=== PATIENT | female | born 1935 | race Caucasian/White ===

== ENCOUNTER 2017-05-03 16:17 | Emergency (ER) | payer MEDICARE ==
[2017-05-03 17:51] VITALS: BP 135/61
[2017-05-03] MEDS ORDERED: ZOFRAN IV ONE (18:25)
[2017-05-03] MEDS ORDERED: NACL 0.9% 1000 ML 1,000 ML IV ONE (18:25)
[2017-05-03] MEDS ORDERED: MORPHINE IV ONE (18:25)
[2017-05-03] MEDS ORDERED: TORADOL IV ONE (18:25)
--- NOTE | 2017-05-03 18:25 | Emergency Department Report ---
Minor Respiratory - HPI Chief Complaint: Upper Respiratory Infection Stated Complaint: WEAKNESS Time Seen by Provider: 05/03/17 18:21 Duration: 2 Days Pain Location: Other (patient is having diffuse body aches) Severity: moderate Minor Respiratory: Yes Able to Tolerate Fluids, Yes Cough (productive of clear sputum), Yes Chest Pain (chest tightness), Yes Shortness of Breath, Yes Fever, No Rhinorrhea, No Sore Throat, No Ear Pain, No Sick Contacts, No Hemoptysis Other History: Patient was diagnosed with acute bronchitis by her personal physician several days ago. Patient has not been able to keep medicines down secondary to coughing and now nausea ED Review of Systems ROS: Stated complaint: WEAKNESS Other details as noted in HPI Comment: All other systems reviewed and negative ED Past Medical Hx - Past Medical History Hx Hypertension: Yes Additional medical history: Hypothyroidism, High cholesterol, hemmorhoids, macular degeneration, skin condition - Social History Smoking Status: Never Smoker Substance Use Type: Prescribed - Medications Home Medications: Home Medications Medication Instructions Recorded Confirmed Last Taken Type Centrum Vitamin 1 tab PO DAILY 08/06/14 08/06/14 08/06/14 History Fenofibrate [Tricor] 145 mg PO QDAY 08/06/14 08/06/14 08/06/14 History LORazepam 1 mg PO PRN 08/06/14 08/06/14 Unknown History Levothyroxine 100 mg PO DAILY 08/06/14 08/06/14 08/05/14 History Metoprolol [Lopressor TAB] 50 mg PO DAILY 08/06/14 08/06/14 08/06/14 History Restasis 0.05% 1 drop DAILY 08/06/14 08/06/14 08/06/14 History Simvastatin 20 mg PO QDAY 08/06/14 08/06/14 08/05/14 History Mupirocin [Bactroban 2% CREAM] 10 applic TP BID #1 tube 08/07/14 Unknown Rx ALBUTEROL Inhaler [ProAir HFA 2 puff IH QID PRN #1 inhalation 05/03/17 Unknown Rx Inhaler] HYDROcodone/APAP 5-325 [[place] 1 each PO Q6HR PRN #12 tablet 05/03/17 Unknown Rx 5/325] Ondansetron [Zofran Odt] 4 mg PO Q8HR #10 tab.rapdis 05/03/17 Unknown Rx Minor Respiratory Exam - Exam General: Vital signs noted. No distress. Alert and acting appropriately. HEENT: Yes Moist Mucous Membranes, No Pharyngeal Erythema, No Pharyngeal Exudates, No Rhinorrhea, No Conjuctival Injection, No Frontal Tenderness, No Maxillary Tenderness Ear: Neither TM Bulge, Neither TM Erythema, Neither EAC Pain, Neither EAC Discharge Neck: Yes Supple, No Adenopathy Lungs: Yes Good Air Exchange, Yes Wheezes, No Ronchi, No Stridor, No Cough, No Labored Respirations, No Retractions, No Use of Accessory Muscles, No Other Abnormal Lung Sounds Heart: Yes Regular, No Murmur Abdomen: Yes Normal Bowel Sounds, No Tenderness, No Peritoneal Signs Skin: No Rash, No Edema Neurologic: Alert and oriented, no deficits. Musculoskeletal: Unremarkable. ED Course Vital Signs 05/03/17 17:47 Temperature 101.6 F H Pulse Rate 98 H Respiratory 22 Rate Blood Pressure 135/61 Blood Pressure 135/61 [Right] O2 Sat by Pulse 96 Oximetry - Reevaluation(s) Reevaluation #1: 05/03/17 19:49 Patient receiving IV fluids patient was given pain medicine which did help her body aches. Patient is on azithromycin from her primary care physician. Patient is to continue with this medication over medicines have been given for pain control as well as nausea ED Medical Decision Making - Lab Data Result diagrams: 05/03/17 19:22 05/03/17 18:29 - Radiology Data no acute process Critical care attestation.: If time is entered above; I have spent that time in minutes in the direct care of this critically ill patient, excluding procedure time. ED Disposition Clinical Impression: Myalgia Acute bronchitis Qualifiers: Bronchitis organism: unspecified organism Qualified Code(s): J20.9 - Acute bronchitis, unspecified Disposition: DC-01 TO HOME OR SELFCARE Is pt being admited?: No Does the pt Need Aspirin: No Condition: Fair Instructions: Acute Bronchitis (ED) Prescriptions: ALBUTEROL Inhaler [ProAir HFA Inhaler] 2 puff IH QID PRN #1 inhalation PRN Reason: Shortness Of Breath HYDROcodone/APAP 5-325 [[place] 5/325] 1 each PO Q6HR PRN #12 tablet PRN Reason: Pain Ondansetron [Zofran Odt] 4 mg PO Q8HR #10 tab.rapdis Referrals: PRIMARY CARE, [Primary Care Provider] - 3-5 Days
[2017-05-03 19:02] LABS: Hematocrit TNR % (30.3-42.9); Hemoglobin TNR gm/dl (10.1-14.3); Mean Corpuscular HGB Conc TNR % (30-34); Mean Corpuscular Hemoglobin TNR pg (28-32); Mean Corpuscular Volume TNR fl (79-97); Mean Platelet Volume TNR fl (6-12); Platelet Count TNR K/mm3 (140-440); Red Blood Count TNR M/mm3 (3.65-5.03); Red Cell Distribution Width TNR % (13.2-15.2)
[2017-05-03 19:03] LABS: Basophils % (Auto) TNR % (0.0-1.8); Eosinophils % (Auto) TNR % (0.0-4.3); Lymphocytes # (Auto) TNR K/mm3 (1.2-5.4); Lymphocytes % (Auto) TNR % (13.4-35.0); Monocytes # (Auto) TNR K/mm3 (0.0-0.8); Monocytes % (Auto) TNR % (0.0-7.3)
[2017-05-03 19:04] LABS: Basophils # (Auto) TNR K/mm3 (0.0-0.1); Eosinophils # (Auto) TNR K/mm3 (0.0-0.4)
[2017-05-03 19:08] LABS: BUN/Creatinine Ratio 20; Blood Urea Nitrogen 10 mg/dL (7-17); Calcium 7.9 mg/dL (8.4-10.2); Hemolysis Index 7
[2017-05-03 19:36] LABS: Hematocrit 40.6 % (30.3-42.9); Hemoglobin 13.5 gm/dl (10.1-14.3); Mean Corpuscular HGB Conc 33 % (30-34); Mean Corpuscular Hemoglobin 31 pg (28-32); Mean Corpuscular Volume 92 fl (79-97); Platelet Count 171 K/mm3 (140-440); Red Blood Count 4.42 M/mm3 (3.65-5.03); Red Cell Distribution Width 13.5 % (13.2-15.2)
--- NOTE | 2017-05-03 19:58 | XRay Report ---
FINAL REPORT EXAM: XR CHEST ROUTINE 2V HISTORY: Upper Respiratory Infection TECHNIQUE: Two view chest PA and lateral PRIORS: None. FINDINGS: Cardiac and mediastinal contours are unremarkable. No focal pulmonary infiltrate is identified. No pleural fluid collection seen. Pulmonary vasculature is unremarkable. IMPRESSION: Negative two-view chest
[2017-05-03] MEDS ORDERED: NORCO 5/325 PO ONE (20:27)
[2017-05-03 20:36] LABS: Anisocytosis RARE; Basophils % (Manual) 0 % (0.0-1.8); Eosinophils % (Manual) 0 % (0.0-4.3); Platelet Estimate Consistent w Auto; Total Cells Counted 100
== END 2017-05-03 20:45 | disposition home or self-care (01) ==
LOC: ED 16:17
DX: J20.9 Acute bronchitis, unspecified (principal); M79.1 Myalgia; I10 Essential (primary) hypertension
CPT/HCPCS: 36415; 71046; 80048; 85007; 85025; 96361; 96374; 96375; 99284; J1885; J2270; J2405; J7030

== ENCOUNTER 2021-02-10 18:55 | Inpatient (IN) | payer MEDICARE, MEDICAID ==
[2021-02-10] MEDS ORDERED: ACETAMINOPHEN 325 MG TAB PO PRN ×2 (20:38→23:59)
--- NOTE | 2021-02-10 20:45 | Emergency Department Report ---
ED General Adult HPI - General Chief complaint: Fever Stated complaint: COUGH/FEVER Time Seen by Provider: 02/10/21 20:04 Source: family Mode of arrival: Wheelchair Limitations: Language Barrier - History of Present Illness Initial comments: The patient presents to the emergency department via EMS with her daughter for cough and fever. The patient does not speak [place] so her daughter interprets for her. The daughter states her mother states an elderly home and that her was admitted to the hospital yesterday for Covid. She says her mom is had a cough for the last day and she noticed today she had a fever. Patient denies chest pain or shortness of breath. -: unknown Severity scale (0 -10): 0 Consistency: constant Improves with: none Worsens with: none Associated Symptoms: denies other symptoms Treatments Prior to Arrival: none - Related Data Home Medications Medication Instructions Recorded Confirmed Last Taken Centrum Vitamin 1 tab PO DAILY 08/06/14 08/06/14 08/06/14 Fenofibrate [Tricor] 145 mg PO QDAY 08/06/14 08/06/14 08/06/14 LORazepam 1 mg PO PRN 08/06/14 08/06/14 Unknown Levothyroxine 100 mg PO DAILY 08/06/14 08/06/14 08/05/14 Metoprolol [Lopressor TAB] 50 mg PO DAILY 08/06/14 08/06/14 08/06/14 Restasis 0.05% 1 drop DAILY 08/06/14 08/06/14 08/06/14 Simvastatin 20 mg PO QDAY 08/06/14 08/06/14 08/05/14 Previous Rx's Medication Instructions Recorded Last Taken Type Mupirocin [Bactroban 2% CREAM] 10 applic TP BID #1 tube 08/07/14 Unknown Rx Albuterol Mdi (or & Nicu Only) 2 puff IH QID PRN #1 inhalation 05/03/17 Unknown Rx [ProAir HFA Inhaler] HYDROcodone/APAP 5-325 [[place] 1 each PO Q6HR PRN #12 tablet 05/03/17 Unknown Rx 5/325] Ondansetron [Zofran Odt] 4 mg PO Q8HR #10 tab.rapdis 05/03/17 Unknown Rx Allergies Allergy/AdvReac Type Severity Reaction Status Date / Time No Known Allergies Allergy Verified 02/10/21 20:44 ED Review of Systems ROS: Stated complaint: COUGH/FEVER Other details as noted in HPI Comment: All other systems reviewed and negative Constitutional: fever. denies: chills Eyes: denies: eye pain, eye discharge, vision change ENT: denies: ear pain, throat pain Respiratory: cough. denies: shortness of breath, wheezing Cardiovascular: denies: chest pain, palpitations Endocrine: no symptoms reported Gastrointestinal: denies: abdominal pain, nausea, diarrhea Genitourinary: denies: urgency, dysuria, discharge Musculoskeletal: denies: back pain, joint swelling, arthralgia Skin: denies: rash, lesions Neurological: denies: headache, weakness, paresthesias Psychiatric: denies: anxiety, depression Hematological/Lymphatic: denies: easy bleeding, easy bruising ED Past Medical Hx - Past Medical History Hx Hypertension: Yes Additional medical history: Hypothyroidism, High cholesterol, hemmorhoids, macular degeneration, skin condition - Social History Smoking Status: Never Smoker Substance Use Type: Prescribed - Medications Home Medications: Home Medications Medication Instructions Recorded Confirmed Last Taken Type Centrum Vitamin 1 tab PO DAILY 08/06/14 08/06/14 08/06/14 History Fenofibrate [Tricor] 145 mg PO QDAY 08/06/14 08/06/14 08/06/14 History LORazepam 1 mg PO PRN 08/06/14 08/06/14 Unknown History Levothyroxine 100 mg PO DAILY 08/06/14 08/06/14 08/05/14 History Metoprolol [Lopressor TAB] 50 mg PO DAILY 08/06/14 08/06/14 08/06/14 History Restasis 0.05% 1 drop DAILY 08/06/14 08/06/14 08/06/14 History Simvastatin 20 mg PO QDAY 08/06/14 08/06/14 08/05/14 History Mupirocin [Bactroban 2% CREAM] 10 applic TP BID #1 tube 08/07/14 Unknown Rx Albuterol Mdi (or & Nicu Only) 2 puff IH QID PRN #1 inhalation 05/03/17 Unknown Rx [ProAir HFA Inhaler] HYDROcodone/APAP 5-325 [[place] 1 each PO Q6HR PRN #12 tablet 05/03/17 Unknown Rx 5/325] Ondansetron [Zofran Odt] 4 mg PO Q8HR #10 tab.rapdis 05/03/17 Unknown Rx ED Physical Exam - General Limitations: Language Barrier General appearance: alert, in no apparent distress - Head Head exam: Present: atraumatic, normocephalic - Eye Eye exam: Present: normal appearance - ENT ENT exam: Present: mucous membranes moist - Neck Neck exam: Present: normal inspection - Respiratory Respiratory exam: Present: rales. Absent: respiratory distress - Cardiovascular Cardiovascular Exam: Present: normal rhythm, tachycardia. Absent: systolic murmur, diastolic murmur, rubs, gallop - GI/Abdominal GI/Abdominal exam: Present: soft, normal bowel sounds. Absent: distended, tenderness - Extremities Exam Extremities exam: Present: normal inspection - Back Exam Back exam: Present: normal inspection - Neurological Exam Neurological exam: Present: alert, oriented X3, CN II-XII intact. Absent: motor sensory deficit - Psychiatric Psychiatric exam: Present: normal affect, normal mood - Skin Skin exam: Present: warm, dry, intact, normal color. Absent: rash ED Course Vital Signs 02/10/21 02/10/21 02/10/21 19:45 19:49 20:26 Temperature 100.5 F H Pulse Rate 101 H Respiratory Rate Blood Pressure 148/85 [Left] O2 Sat by Pulse 94 94 Oximetry 02/10/21 02/10/21 20:30 20:39 Temperature Pulse Rate Respiratory 21 Rate Blood Pressure [Left] O2 Sat by Pulse 94 97 Oximetry ED Medical Decision Making - Lab Data Result diagrams: 02/10/21 20:44 02/10/21 20:44 Lab Results 02/10/21 02/10/21 02/10/21 Range/Units 20:44 20:44 20:44 WBC 4.8 (4.5-11.0) K/mm3 RBC 4.78 (3.65-5.03) M/mm3 Hgb 15.5 H (10.1-14.3) gm/dl Hct 45.9 H (30.3-42.9) % MCV 96 (79-97) fl MCH 32 (28-32) pg MCHC 34 (30-34) % RDW 13.0 L (13.2-15.2) % Plt Count 252 (140-440) K/mm3 [place] % (Auto) [place] Baso % (Auto) [place] # (Auto) 0.8 (0.0-0.8) K/mm3 Baso # (Auto) 0.0 (0.0-0.1) K/mm3 Add Manual Diff Complete Total Counted 100 Seg Neutrophils % 69.8 (40.0-70.0) % Seg Neuts % (Manual) 76.0 H (40.0-70.0) % Lymphocytes % (Manual) 13.0 L (13.4-35.0) % Monocytes % (Manual) 11.0 H (0.0-7.3) % Nucleated RBC % Not Reportable Seg Neutrophils # Man 3.6 (1.8-7.7) K/mm3 Band Neutrophils # 0.0 K/mm3 Lymphocytes # (Manual) 0.6 L (1.2-5.4) K/mm3 Abs React Lymphs (Man) 0.0 K/mm3 Monocytes # (Manual) 0.5 (0.0-0.8) K/mm3 Eosinophils # (Manual) 0.0 (0.0-0.4) K/mm3 Basophils # (Manual) 0.0 (0.0-0.1) K/mm3 Metamyelocytes # 0.0 K/mm3 Myelocytes # 0.0 K/mm3 Promyelocytes # 0.0 K/mm3 Blast Cells # 0.0 K/mm3 WBC Morphology Not Reportable Hypersegmented Neuts Not Reportable Hyposegmented Neuts Not Reportable Hypogranular Neuts Not Reportable Smudge Cells Not Reportable Toxic Granulation Not Reportable Toxic Vacuolation Not Reportable Dohle Bodies Not Reportable Pelger-Huet Anomaly Not Reportable Ezekiel Rods Not Reportable Platelet Estimate Consistent w auto Clumped Platelets Not Reportable Plt Clumps, EDTA Not Reportable Large Platelets Not Reportable Giant Platelets Not Reportable Platelet Satelliting Not Reportable Plt Morphology Comment Not Reportable RBC Morphology Normal Dimorphic RBCs Not Reportable Polychromasia Not Reportable Hypochromasia Not Reportable Poikilocytosis Not Reportable Anisocytosis Not Reportable Microcytosis Not Reportable Macrocytosis Not Reportable Spherocytes Not Reportable Pappenheimer Bodies Not Reportable Sickle Cells Not Reportable Target Cells Not Reportable Tear Drop Cells Not Reportable Ovalocytes Not Reportable Helmet Cells Not Reportable John-[place] Bodies Not Reportable [place] Rings Not Reportable Kayleigh Cells Not Reportable Bite Cells Not Reportable Crenated Cell Not Reportable Elliptocytes Not Reportable Acanthocytes (Spur) Not Reportable Rouleaux Not Reportable Hemoglobin C Crystals Not Reportable Schistocytes Not Reportable Malaria parasites Not Reportable Fabian Bodies Not Reportable Hem Pathologist Commnt No APTT 32.5 (24.2-36.6) Sec. Sodium (137-145) mmol/L Potassium (3.6-5.0) mmol/L Chloride (98-107) mmol/L Carbon Dioxide (22-30) mmol/L Anion Gap mmol/L BUN (7-17) mg/dL Creatinine (0.6-1.2) mg/dL Estimated GFR ml/min BUN/Creatinine Ratio % Glucose (65-100) mg/dL Lactic Acid (0.7-2.0) mmol/L Calcium (8.4-10.2) mg/dL Total Bilirubin (0.1-1.2) mg/dL AST (5-40) units/L ALT (7-56) units/L Alkaline Phosphatase (35-129) units/L Total Creatine Kinase (30-135) units/L Troponin T (0.00-0.029) ng/mL NT-Pro-B Natriuret Pep (0-900) pg/mL Total Protein (6.3-8.2) g/dL Albumin (3.9-5) g/dL Albumin/Globulin Ratio % Blood Type AB POSITIVE Antibody Screen Negative 02/10/21 02/10/21 02/10/21 Range/Units 20:44 20:44 20:44 WBC (4.5-11.0) K/mm3 RBC (3.65-5.03) M/mm3 Hgb (10.1-14.3) gm/dl Hct (30.3-42.9) % MCV (79-97) fl MCH (28-32) pg MCHC (30-34) % RDW (13.2-15.2) % Plt Count (140-440) K/mm3 [place] % (Auto) Baso % (Auto) [place] # (Auto) (0.0-0.8) K/mm3 Baso # (Auto) (0.0-0.1) K/mm3 Add Manual Diff Total Counted Seg Neutrophils % (40.0-70.0) % Seg Neuts % (Manual) (40.0-70.0) % Lymphocytes % (Manual) (13.4-35.0) % Monocytes % (Manual) (0.0-7.3) % Nucleated RBC % Seg Neutrophils # Man (1.8-7.7) K/mm3 Band Neutrophils # K/mm3 Lymphocytes # (Manual) (1.2-5.4) K/mm3 Abs React Lymphs (Man) K/mm3 Monocytes # (Manual) (0.0-0.8) K/mm3 Eosinophils # (Manual) (0.0-0.4) K/mm3 Basophils # (Manual) (0.0-0.1) K/mm3 Metamyelocytes # K/mm3 Myelocytes # K/mm3 Promyelocytes # K/mm3 Blast Cells # K/mm3 WBC Morphology Hypersegmented Neuts Hyposegmented Neuts Hypogranular Neuts Smudge Cells Toxic Granulation Toxic Vacuolation Dohle Bodies Pelger-Huet Anomaly Ezekiel Rods Platelet Estimate Clumped Platelets Plt Clumps, EDTA Large Platelets Giant Platelets Platelet Satelliting Plt Morphology Comment RBC Morphology Dimorphic RBCs Polychromasia Hypochromasia Poikilocytosis Anisocytosis Microcytosis Macrocytosis Spherocytes Pappenheimer Bodies Sickle Cells Target Cells Tear Drop Cells Ovalocytes Helmet Cells John-[place] Bodies [place] Rings Kayleigh Cells Bite Cells Crenated Cell Elliptocytes Acanthocytes (Spur) Rouleaux Hemoglobin C Crystals Schistocytes Malaria parasites Fabian Bodies Hem Pathologist Commnt APTT (24.2-36.6) Sec. Sodium 128 L (137-145) mmol/L Potassium 4.4 (3.6-5.0) mmol/L Chloride 93.2 L (98-107) mmol/L Carbon Dioxide 24 (22-30) mmol/L Anion Gap 15 mmol/L BUN 10 (7-17) mg/dL Creatinine 0.7 (0.6-1.2) mg/dL Estimated GFR > 60 ml/min BUN/Creatinine Ratio 14 % Glucose 110 H (65-100) mg/dL Lactic Acid 0.90 (0.7-2.0) mmol/L Calcium 8.7 (8.4-10.2) mg/dL Total Bilirubin 0.60 (0.1-1.2) mg/dL AST 84 H (5-40) units/L ALT 52 (7-56) units/L Alkaline Phosphatase 57 (35-129) units/L Total Creatine Kinase 271 H (30-135) units/L Troponin T < 0.010 (0.00-0.029) ng/mL NT-Pro-B Natriuret Pep 470.8 (0-900) pg/mL Total Protein 8.2 (6.3-8.2) g/dL Albumin 3.6 L (3.9-5) g/dL Albumin/Globulin Ratio 0.8 % Blood Type Antibody Screen - Radiology Data Radiology results: report reviewed - Medical Decision Making IV antibiotics given Discussed results and plan of care with the patient's daughter Critical Care Time: Yes Critical care time in (mins) excluding proc time.: 35 Critical care attestation.: If time is entered above; I have spent that time in minutes in the direct care of this critically ill patient, excluding procedure time. ED Disposition Clinical Impression: Bilateral pneumonia, Sepsis Disposition: 09 ADMITTED INPATIENT Is pt being admited?: Yes Does the pt Need Aspirin: No Condition: Fair Instructions: Bacterial Pneumonia (ED) Referrals: PRIMARY CARE, [Primary Care Provider] - 3-5 Days
[2021-02-10] MEDS ORDERED: CEFEPIME/NS 2 GM/100 ML 2 GM/100 ML BAG IV SCH (21:00)
--- NOTE | 2021-02-10 21:05 | XRay Report ---
CHEST 1 VIEW INDICATION / CLINICAL INFORMATION: cough. COMPARISON: 05/03/2017 FINDINGS: SUPPORT DEVICES: None. HEART / MEDIASTINUM: . Normal cardiac silhouette size. Mildly tortuous thoracic aorta. LUNGS / PLEURA: Subtle pulmonary opacities are present bilaterally, most notably in the right midlung and left lung base. The appearance is certainly worrisome for viral pneumonia. No pleural effusion. No pneumothorax. ADDITIONAL FINDINGS: No significant additional findings. IMPRESSION: 1. Bilateral pulmonary opacities. I suspect Covid pneumonia. Please correlate with Covid status. Signer Name: Tahira Montenegro MD Signed: 02/10/2021 9:01 PM Workstation Name: [id number]
[2021-02-10 21:25] LABS: Alanine Aminotransferase 52 units/L (7-56); Albumin 3.6 g/dL (3.9-5); Blood Urea Nitrogen 10 mg/dL (7-17); Calcium 8.7 mg/dL (8.4-10.2); Hemolysis Index 11
[2021-02-10 21:28] LABS: BUN/Creatinine Ratio 14
[2021-02-10 21:40] LABS: Hematocrit 45.9 % (30.3-42.9); Hemoglobin 15.5 gm/dl (10.1-14.3); Mean Corpuscular HGB Conc 34 % (30-34); Mean Corpuscular Volume 96 fl (79-97); Monocytes # (Auto) 0.8 K/mm3 (0.0-0.8); Platelet Count 252 K/mm3 (140-440); Red Blood Count 4.78 M/mm3 (3.65-5.03)
[2021-02-10 22:23] LABS: Total Cells Counted 100
[2021-02-10 22:25] LABS: Platelet Estimate Consistent w Auto; RBC Morphology Normal
[2021-02-10] MEDS ORDERED: CEFEPIME/NS 2 GM/100 ML 2 GM/100 ML BAG IV ONE (22:57)
[2021-02-10] MEDS ORDERED: ALBUTEROL 2.5 MG/3 ML NEBU IH PRN (23:59)
[2021-02-10] MEDS ORDERED: HYDROmorphone 1 MG/1 ML INJ IV PRN (23:59)
[2021-02-10] MEDS ORDERED: ONDANSETRON 4 MG/2 ML INJ IV PRN (23:59)
[2021-02-10] MEDS ORDERED: oxyCODONE /ACETAMINOPHEN 5-325MG TAB PO PRN (23:59)
[2021-02-11] MEDS ORDERED: hydrALAZINE 20 MG/1 ML INJ IV PRN (00:01)
--- NOTE | 2021-02-11 00:10 | History and Physical Report ---
History of Present Illness Date of examination: 02/11/21 Date of admission: 02/10/21 23:01 Chief complaint: Fever and cough History of present illness: 85 years old female with past medical history of hypertension, hypothyroidism was brought to the emergency room via EMS with her daughter for cough and fever for the last 1 day. The patient does not speak Pashto so her daughter interprets for her. The daughter states her mother states an elderly home and that her was admitted to the hospital yesterday for Covid. She says her mom is had a cough for the last day and she noticed today she had a fever. Patient denies chest pain or shortness of breath. In the emergency room patient chest x-ray shows bilateral pulmonary opacities. I suspect Covid pneumonia. Please correlate with the Covid status. We are going to admit the patient as covid pneumonia. Consult infectious disease for evaluation Med rec is done. Advance discharge process is initiated Past History Past Medical History: hypertension, hyperlipidemia, hypothyroidism, other (Hemorrhoid, macular degeneration,) Medications and Allergies Allergies Allergy/AdvReac Type Severity Reaction Status Date / Time No Known Allergies Allergy Verified 02/10/21 20:44 Home Medications Medication Instructions Recorded Confirmed Last Taken Type Centrum Vitamin 1 tab PO DAILY 08/06/14 08/06/14 08/06/14 History Fenofibrate [Tricor] 145 mg PO QDAY 08/06/14 08/06/14 08/06/14 History LORazepam 1 mg PO PRN 08/06/14 08/06/14 Unknown History Levothyroxine 100 mg PO DAILY 08/06/14 08/06/14 08/05/14 History Metoprolol [Lopressor TAB] 50 mg PO DAILY 08/06/14 08/06/14 08/06/14 History Restasis 0.05% 1 drop DAILY 08/06/14 08/06/14 08/06/14 History Simvastatin 20 mg PO QDAY 08/06/14 08/06/14 08/05/14 History Mupirocin [Bactroban 2% CREAM] 10 applic TP BID #1 tube 08/07/14 Unknown Rx Albuterol Mdi (or & Nicu Only) 2 puff IH QID PRN #1 inhalation 05/03/17 Unknown Rx [ProAir HFA Inhaler] HYDROcodone/APAP 5-325 [[place] 1 each PO Q6HR PRN #12 tablet 05/03/17 Unknown Rx 5/325] Ondansetron [Zofran Odt] 4 mg PO Q8HR #10 tab.rapdis 05/03/17 Unknown Rx Active Meds: Active Medications Acetaminophen (Acetaminophen 325 Mg Tab) 650 mg PO Q6H PRN PRN Reason: Pain, Mild (1-3) Last Admin: 02/10/21 21:38 Dose: 650 mg Documented by: Acetaminophen (Acetaminophen 325 Mg Tab) 650 mg PO Q4H PRN PRN Reason: Pain MILD(1-3)/Fever >100.5/GIRALDO Albuterol (Albuterol 2.5 Mg/3 Ml Nebu) 2.5 mg IH Q4HRT PRN PRN Reason: Shortness Of Breath Albuterol/Ipratropium (Ipratropium/Albuterol Sulfate 3 Ml Ampul.Neb) 1 ampul IH Q6HRT ERIN Dexamethasone (Dexamethasone 4 Mg/Ml Vial) 6 mg IV DAILY ERIN Famotidine (Famotidine 20 Mg Tab) 20 mg PO BID ERIN Fenofibrate (Fenofibrate 145 Mg Tab) 145 mg PO QDAY ERIN Hydralazine HCl (Hydralazine 20 Mg/1 Ml Inj) 10 mg IV Q6H PRN PRN Reason: Blood Pressure Hydromorphone HCl (Hydromorphone 1 Mg/1 Ml Inj) 0.5 mg IV Q3H PRN PRN Reason: Pain , Severe (7-10) Cefepime HCl (Cefepime/Ns 2 Gm/100 Ml) 2 gm in 100 mls @ 200 mls/hr IV Q8H ERIN; Protocol Last Admin: 02/10/21 21:57 Dose: 200 mls/hr Documented by: Ceftriaxone Sodium (Rocephin/Ns 2 Gm/100 Ml) 2 gm in 100 mls @ 200 mls/hr IV Q24H ERIN; Protocol Azithromycin (Zithromax/Ns) 500 mg in 250 mls @ 250 mls/hr IV Q24H ERIN; Pro tocol Metoprolol Tartrate (Metoprolol Tartrate 50 Mg Tab) 50 mg PO DAILY [facility] Miscellaneous Medication (Levothyroxine) 100 mg PO DAILY ERIN Miscellaneous Medication (Mupirocin [Bactroban 2% Cream]) 10 applic TP BID [facility] Miscellaneous Medication (Restasis 0.05%) 1 drop .ROUTE DAILY [facility] Ondansetron HCl (Ondansetron 4 Mg/2 Ml Inj) 4 mg IV Q8H PRN PRN Reason: Nausea And Vomiting Oxycodone/Acetaminophen (Oxycodone /Acetaminophen 5-325mg Tab) 1 tab PO Q6H PRN PRN Reason: Pain, Moderate (4-6) Sodium Chloride (Sodium Chloride 0.9% 10 Ml Flush Syringe) 10 ml IV BID ERIN Sodium Chloride (Sodium Chloride 0.9% 10 Ml Flush Syringe) 10 ml IV PRN PRN PRN Reason: LINE FLUSH Review of Systems All systems: negative Constitutional: fever Respiratory: cough Exam - Constitutional Vitals: Temp Pulse Resp BP Pulse Ox 100.5 F H 92 H 27 H 140/86 93 02/10/21 19:49 02/10/21 23:30 02/10/21 23:30 02/10/21 23:30 02/10/21 23:30 General appearance: Present: no acute distress, well-nourished - EENT Eyes: Present: PERRL ENT: hearing intact, clear oral mucosa - Neck Neck: Present: supple, normal ROM - Respiratory Respiratory effort: normal Respiratory: bilateral: diminished - Cardiovascular Heart Sounds: Present: S1 & S2. Absent: rub, click - Extremities Extremities: pulses symmetrical, No edema Peripheral Pulses: within normal limits - Abdominal General gastrointestinal: Present: soft, non-tender, non-distended, normal bowel sounds Female genitourinary: Present: normal - Integumentary Integumentary: Present: clear, warm, dry - Musculoskeletal Musculoskeletal: gait normal, strength equal bilaterally - Psychiatric Psychiatric: appropriate mood/affect, intact judgment & insight - Neurologic Neurologic: CNII-XII intact, moves all extremities HEART Score - HEART Score Troponin: Troponin T < 0.010 ng/mL (0.00-0.029) 02/10/21 20:44 Results - Labs CBC & Chem 7: 02/10/21 20:44 02/10/21 20:44 Labs: Laboratory Last Values WBC 4.8 K/mm3 (4.5-11.0) 02/10/21 20:44 RBC 4.78 M/mm3 (3.65-5.03) 02/10/21 20:44 Hgb 15.5 gm/dl (10.1-14.3) H 02/10/21 20:44 Hct 45.9 % (30.3-42.9) H 02/10/21 20:44 MCV 96 fl (79-97) 02/10/21 20:44 MCH 32 pg (28-32) 02/10/21 20:44 MCHC 34 % (30-34) 02/10/21 20:44 RDW 13.0 % (13.2-15.2) L 02/10/21 20:44 Plt Count 252 K/mm3 (140-440) 02/10/21 20:44 [place] % (Auto) Rag Baler 02/10/21 20:44 Baso % (Auto) Rag Baler 02/10/21 20:44 [place] # (Auto) 0.8 K/mm3 (0.0-0.8) 02/10/21 20:44 Baso # (Auto) 0.0 K/mm3 (0.0-0.1) 02/10/21 20:44 Add Manual Diff Complete 02/10/21 20:44 Total Counted 100 02/10/21 20:44 Seg Neutrophils % 69.8 % (40.0-70.0) 02/10/21 20:44 Seg Neuts % (Manual) 76.0 % (40.0-70.0) H 02/10/21 20:44 Lymphocytes % (Manual) 13.0 % (13.4-35.0) L 02/10/21 20:44 Monocytes % (Manual) 11.0 % (0.0-7.3) H 02/10/21 20:44 Nucleated RBC % Not Reportable 02/10/21 20:44 Seg Neutrophils # Man 3.6 K/mm3 (1.8-7.7) 02/10/21 20:44 Band Neutrophils # 0.0 K/mm3 02/10/21 20:44 Lymphocytes # (Manual) 0.6 K/mm3 (1.2-5.4) L 02/10/21 20:44 Abs React Lymphs (Man) 0.0 K/mm3 02/10/21 20:44 Monocytes # (Manual) 0.5 K/mm3 (0.0-0.8) 02/10/21 20:44 Eosinophils # (Manual) 0.0 K/mm3 (0.0-0.4) 02/10/21 20:44 Basophils # (Manual) 0.0 K/mm3 (0.0-0.1) 02/10/21 20:44 Metamyelocytes # 0.0 K/mm3 02/10/21 20:44 Myelocytes # 0.0 K/mm3 02/10/21 20:44 Promyelocytes # 0.0 K/mm3 02/10/21 20:44 Blast Cells # 0.0 K/mm3 02/10/21 20:44 WBC Morphology Not Reportable 02/10/21 20:44 Hypersegmented Neuts Not Reportable 02/10/21 20:44 Hyposegmented Neuts Not Reportable 02/10/21 20:44 Hypogranular Neuts Not Reportable 02/10/21 20:44 Smudge Cells Not Reportable 02/10/21 20:44 Toxic Granulation Not Reportable 02/10/21 20:44 Toxic Vacuolation Not Reportable 02/10/21 20:44 Dohle Bodies Not Reportable 02/10/21 20:44 Pelger-Huet Anomaly Not Reportable 02/10/21 20:44 Ezekiel Rods Not Reportable 02/10/21 20:44 Platelet Estimate Consistent w auto 02/10/21 20:44 Clumped Platelets Not Reportable 02/10/21 20:44 Plt Clumps, EDTA Not Reportable 02/10/21 20:44 Large Platelets Not Reportable 02/10/21 20:44 Giant Platelets Not Reportable 02/10/21 20:44 Platelet Satelliting Not Reportable 02/10/21 20:44 Plt Morphology Comment Not Reportable 02/10/21 20:44 RBC Morphology Normal 02/10/21 20:44 Dimorphic RBCs Not Reportable 02/10/21 20:44 Polychromasia Not Reportable 02/10/21 20:44 Hypochromasia Not Reportable 02/10/21 20:44 Poikilocytosis Not Reportable 02/10/21 20:44 Anisocytosis Not Reportable 02/10/21 20:44 Microcytosis Not Reportable 02/10/21 20:44 Macrocytosis Not Reportable 02/10/21 20:44 Spherocytes Not Reportable 02/10/21 20:44 Pappenheimer Bodies Not Reportable 02/10/21 20:44 Sickle Cells Not Reportable 02/10/21 20:44 Target Cells Not Reportable 02/10/21 20:44 Tear Drop Cells Not Reportable 02/10/21 20:44 Ovalocytes Not Reportable 02/10/21 20:44 Helmet Cells Not Reportable 02/10/21 20:44 [place] Bodies Not Reportable 02/10/21 20:44 [place] Rings Not Reportable 02/10/21 20:44 [place] Cells Not Reportable 02/10/21 20:44 Bite Cells Not Reportable 02/10/21 20:44 Crenated Cell Not Reportable 02/10/21 20:44 Elliptocytes Not Reportable 02/10/21 20:44 Acanthocytes (Spur) Not Reportable 02/10/21 20:44 Rouleaux Not Reportable 02/10/21 20:44 Hemoglobin C Crystals Not Reportable 02/10/21 20:44 Schistocytes Not Reportable 02/10/21 20:44 Malaria parasites Not Reportable 02/10/21 20:44 Fabian Bodies Not Reportable 02/10/21 20:44 Hem Pathologist Commnt No 02/10/21 20:44 APTT 32.5 Sec. (24.2-36.6) 02/10/21 20:44 Sodium 128 mmol/L (137-145) L 02/10/21 20:44 Potassium 4.4 mmol/L (3.6-5.0) 02/10/21 20:44 Chloride 93.2 mmol/L (98-107) L 02/10/21 20:44 Carbon Dioxide 24 mmol/L (22-30) 02/10/21 20:44 Anion Gap 15 mmol/L 02/10/21 20:44 BUN 10 mg/dL (7-17) 02/10/21 20:44 Creatinine 0.7 mg/dL (0.6-1.2) 02/10/21 20:44 Estimated GFR > 60 ml/min 02/10/21 20:44 BUN/Creatinine Ratio 14 % 02/10/21 20:44 Glucose 110 mg/dL (65-100) H 02/10/21 20:44 Lactic Acid 0.90 mmol/L (0.7-2.0) 02/10/21 20:44 Calcium 8.7 mg/dL (8.4-10.2) 02/10/21 20:44 Total Bilirubin 0.60 mg/dL (0.1-1.2) 02/10/21 20:44 AST 84 units/L (5-40) H 02/10/21 20:44 ALT 52 units/L (7-56) 02/10/21 20:44 Alkaline Phosphatase 57 units/L (35-129) 02/10/21 20:44 Total Creatine Kinase 271 units/L (30-135) H 02/10/21 20:44 Troponin T < 0.010 ng/mL (0.00-0.029) 02/10/21 20:44 NT-Pro-B Natriuret Pep 470.8 pg/mL (0-900) 02/10/21 20:44 Total Protein 8.2 g/dL (6.3-8.2) 02/10/21 20:44 Albumin 3.6 g/dL (3.9-5) L 02/10/21 20:44 Albumin/Globulin Ratio 0.8 % 02/10/21 20:44 Blood Type AB POSITIVE 02/10/21 20:44 Antibody Screen Negative 02/10/21 20:44 - Imaging and Cardiology Chest x-ray: report reviewed Assessment and Plan VTE prophylaxis?: Chemical Plan of care discussed with patient/family: Yes - Patient Problems (1) Bilateral pneumonia Current Visit: Yes Status: Acute Plan to address problem: Admit the patient to the medical floor. Oxygen by nasal cannula 3 to per minute. DuoNeb by nebulizer every 4 hours. Albuterol via nebulizer every 4 hours as needed. Rocephin 2 g IV daily and Zithromax 500 mg IV daily. Dexamethasone 6 mg IV daily. We do the blood culture and sputum culture. We will send the Covid PCR. We also consult infectious disease for evaluation. Put the patient on COVID-19 isolation. Follow Covid inflammatory markers (2) COVID-19 Current Visit: Yes Status: Acute Plan to address problem: Oxygen by nasal cannula 3 to per minute. DuoNeb by nebulizer every 4 hours. Albuterol via nebulizer every 4 hours as needed. Rocephin 2 g IV daily and Zithromax 500 mg IV daily. Dexamethasone 6 mg IV daily. We do the blood culture and sputum culture. We will send the Covid PCR. We also consult infectious disease for evaluation. Put the patient on COVID-19 isolation. Follow Covid inflammatory markers (3) Hypertension Current Visit: Yes Status: Acute Plan to address problem: Hydralazine 10 mg IV every 6 hours as needed. Metoprolol 50 mg p.o. daily. We continue the home medication. We will monitor the blood pressure closely (4) Hypothyroidism Current Visit: Yes Status: Acute Plan to address problem: Stable. We will continue the home medication. (5) Hyperlipidemia Current Visit: Yes Status: Acute Plan to address problem: TriCor 145 mg p.o. daily. We will continue the home medication. (6) DVT prophylaxis Current Visit: Yes Status: Acute Plan to address problem: Heparin 5000 units subcu every 8 hours for DVT prophylaxis. Pepcid 20 mg p.o. twice daily for GI prophylaxis. Patient is a full code.
[2021-02-11] MEDS: cefTRIAXone/NS 2 GM/100 ML 2 GM/100 ML BAG IV SCH (01:08)
[2021-02-11] MEDS: AZITHROMYCIN/NS 500 MG/250 ML 500 MG/250 ML BAG IV SCH (01:46)
[2021-02-11] MEDS: HEPARIN 5,000 UNIT/1 ML VIAL SUB-Q SCH ×3 (05:24→21:47)
[2021-02-11] MEDS: LEVOTHYROXINE 100 MCG TAB PO SCH (05:24)
--- NOTE | 2021-02-11 08:47 | Progress Note ---
Assessment and Plan Assessment and plan: --Hyponatremia ; Current Visit: Yes Status: Acute Improved, closely monitor electrolytes --Bilateral pneumonia Current Visit: Yes Status: Acute Continue empiric antibiotics , follow cultures Probably due to Covid pneumonia --Hypertension Current Visit: Yes Status: Acute Continue current antihypertensives As needed hydralazine -- Hypothyroidism Current Visit: Yes Status: Acute Stable. We will continue the home medication. Continue Synthroid --Hyperlipidemia Current Visit: Yes Status: Acute Low-cholesterol diet, lipid-lowering medication -- DVT prophylaxis Current Visit: Yes Status: Acute Heparin 5000 units subcu every 8 hours --full CODE STATUS We will closely monitor the patient and adjust management as needed History Interval history: I have seen and examined the patient at the bedside Patient's chart and medications reviewed Patient feels slightly better No new complaints Hospitalist Physical - Constitutional Vitals: Temp Pulse Resp BP Pulse Ox 98.4 F 82 16 139/80 90 02/11/21 04:25 02/11/21 04:25 02/11/21 04:25 02/11/21 04:25 02/11/21 04:25 General appearance: Present: no acute distress, well-nourished - EENT Eyes: Present: PERRL, EOM intact - Neck Neck: Present: supple, normal ROM - Respiratory Respiratory effort: normal Respiratory: bilateral: diminished, rhonchi, negative: rales, wheezing - Cardiovascular Rhythm: regular Heart Sounds: Present: S1 & S2 - Extremities Extremities: no ischemia, No edema - Abdominal General gastrointestinal: soft, non-tender, non-distended, normal bowel sounds - Integumentary Integumentary: Present: clear, warm - Psychiatric Psychiatric: appropriate mood/affect, cooperative - Neurologic Neurologic: moves all extremities HEART Score - HEART Score Troponin: Troponin T < 0.010 ng/mL (0.00-0.029) 02/10/21 20:44 Results - Labs CBC & Chem 7: 02/10/21 20:44 02/11/21 10:18 Labs: Laboratory Last Values WBC 4.8 K/mm3 (4.5-11.0) 02/10/21 20:44 RBC 4.78 M/mm3 (3.65-5.03) 02/10/21 20:44 Hgb 15.5 gm/dl (10.1-14.3) H 02/10/21 20:44 Hct 45.9 % (30.3-42.9) H 02/10/21 20:44 MCV 96 fl (79-97) 02/10/21 20:44 MCH 32 pg (28-32) 02/10/21 20:44 MCHC 34 % (30-34) 02/10/21 20:44 RDW 13.0 % (13.2-15.2) L 02/10/21 20:44 Plt Count 252 K/mm3 (140-440) 02/10/21 20:44 [place] % (Auto) Forestry Supervisor 02/10/21 20:44 Baso % (Auto) Forestry Supervisor 02/10/21 20:44 [place] # (Auto) 0.8 K/mm3 (0.0-0.8) 02/10/21 20:44 Baso # (Auto) 0.0 K/mm3 (0.0-0.1) 02/10/21 20:44 Add Manual Diff Complete 02/10/21 20:44 Total Counted 100 02/10/21 20:44 Seg Neutrophils % 69.8 % (40.0-70.0) 02/10/21 20:44 Seg Neuts % (Manual) 76.0 % (40.0-70.0) H 02/10/21 20:44 Lymphocytes % (Manual) 13.0 % (13.4-35.0) L 02/10/21 20:44 Monocytes % (Manual) 11.0 % (0.0-7.3) H 02/10/21 20:44 Nucleated RBC % Not Reportable 02/10/21 20:44 Seg Neutrophils # Man 3.6 K/mm3 (1.8-7.7) 02/10/21 20:44 Band Neutrophils # 0.0 K/mm3 02/10/21 20:44 Lymphocytes # (Manual) 0.6 K/mm3 (1.2-5.4) L 02/10/21 20:44 Abs React Lymphs (Man) 0.0 K/mm3 02/10/21 20:44 Monocytes # (Manual) 0.5 K/mm3 (0.0-0.8) 02/10/21 20:44 Eosinophils # (Manual) 0.0 K/mm3 (0.0-0.4) 02/10/21 20:44 Basophils # (Manual) 0.0 K/mm3 (0.0-0.1) 02/10/21 20:44 Metamyelocytes # 0.0 K/mm3 02/10/21 20:44 Myelocytes # 0.0 K/mm3 02/10/21 20:44 Promyelocytes # 0.0 K/mm3 02/10/21 20:44 Blast Cells # 0.0 K/mm3 02/10/21 20:44 WBC Morphology Not Reportable 02/10/21 20:44 Hypersegmented Neuts Not Reportable 02/10/21 20:44 Hyposegmented Neuts Not Reportable 02/10/21 20:44 Hypogranular Neuts Not Reportable 02/10/21 20:44 Smudge Cells Not Reportable 02/10/21 20:44 Toxic Granulation Not Reportable 02/10/21 20:44 Toxic Vacuolation Not Reportable 02/10/21 20:44 Dohle Bodies Not Reportable 02/10/21 20:44 Pelger-Huet Anomaly Not Reportable 02/10/21 20:44 Ezekiel Rods Not Reportable 02/10/21 20:44 Platelet Estimate Consistent w auto 02/10/21 20:44 Clumped Platelets Not Reportable 02/10/21 20:44 Plt Clumps, EDTA Not Reportable 02/10/21 20:44 Large Platelets Not Reportable 02/10/21 20:44 Giant Platelets Not Reportable 02/10/21 20:44 Platelet Satelliting Not Reportable 02/10/21 20:44 Plt Morphology Comment Not Reportable 02/10/21 20:44 RBC Morphology Normal 02/10/21 20:44 Dimorphic RBCs Not Reportable 02/10/21 20:44 Polychromasia Not Reportable 02/10/21 20:44 Hypochromasia Not Reportable 02/10/21 20:44 Poikilocytosis Not Reportable 02/10/21 20:44 Anisocytosis Not Reportable 02/10/21 20:44 Microcytosis Not Reportable 02/10/21 20:44 Macrocytosis Not Reportable 02/10/21 20:44 Spherocytes Not Reportable 02/10/21 20:44 Pappenheimer Bodies Not Reportable 02/10/21 20:44 Sickle Cells Not Reportable 02/10/21 20:44 Target Cells Not Reportable 02/10/21 20:44 Tear Drop Cells Not Reportable 02/10/21 20:44 Ovalocytes Not Reportable 02/10/21 20:44 Helmet Cells Not Reportable 02/10/21 20:44 [place] Bodies Not Reportable 02/10/21 20:44 [place] Rings Not Reportable 02/10/21 20:44 [place] Cells Not Reportable 02/10/21 20:44 Bite Cells Not Reportable 02/10/21 20:44 Crenated Cell Not Reportable 02/10/21 20:44 Elliptocytes Not Reportable 02/10/21 20:44 Acanthocytes (Spur) Not Reportable 02/10/21 20:44 Rouleaux Not Reportable 02/10/21 20:44 Hemoglobin C Crystals Not Reportable 02/10/21 20:44 Schistocytes Not Reportable 02/10/21 20:44 Malaria parasites Not Reportable 02/10/21 20:44 Fabian Bodies Not Reportable 02/10/21 20:44 Hem Pathologist Commnt No 02/10/21 20:44 APTT 32.5 Sec. (24.2-36.6) 02/10/21 20:44 Sodium 128 mmol/L (137-145) L 02/10/21 20:44 Potassium 4.4 mmol/L (3.6-5.0) 02/10/21 20:44 Chloride 93.2 mmol/L (98-107) L 02/10/21 20:44 Carbon Dioxide 24 mmol/L (22-30) 02/10/21 20:44 Anion Gap 15 mmol/L 02/10/21 20:44 BUN 10 mg/dL (7-17) 02/10/21 20:44 Creatinine 0.7 mg/dL (0.6-1.2) 02/10/21 20:44 Estimated GFR > 60 ml/min 02/10/21 20:44 BUN/Creatinine Ratio 14 % 02/10/21 20:44 Glucose 110 mg/dL (65-100) H 02/10/21 20:44 Lactic Acid 0.90 mmol/L (0.7-2.0) 02/10/21 20:44 Calcium 8.7 mg/dL (8.4-10.2) 02/10/21 20:44 Total Bilirubin 0.60 mg/dL (0.1-1.2) 02/10/21 20:44 AST 84 units/L (5-40) H 02/10/21 20:44 ALT 52 units/L (7-56) 02/10/21 20:44 Alkaline Phosphatase 57 units/L (35-129) 02/10/21 20:44 Total Creatine Kinase 271 units/L (30-135) H 02/10/21 20:44 Troponin T < 0.010 ng/mL (0.00-0.029) 02/10/21 20:44 NT-Pro-B Natriuret Pep 470.8 pg/mL (0-900) 02/10/21 20:44 Total Protein 8.2 g/dL (6.3-8.2) 02/10/21 20:44 Albumin 3.6 g/dL (3.9-5) L 02/10/21 20:44 Albumin/Globulin Ratio 0.8 % 02/10/21 20:44 Blood Type AB POSITIVE 02/10/21 20:44 Antibody Screen Negative 02/10/21 20:44 Garcia/IV: Voiding Method Diaper Active Medications - Current Medications Current Medications: Generic Name Dose Route Start Last Admin Trade Name Freq PRN Reason Stop Dose Admin Acetaminophen 650 mg 02/10/21 23:59 Acetaminophen 325 Mg Tab PO Q4H PRN Pain MILD(1-3)/Fever >100.5/GIRALDO Albuterol 2.5 mg 02/10/21 23:59 Albuterol 2.5 Mg/3 Ml Nebu IH Q4HRT PRN Shortness Of Breath Albuterol/Ipratropium 1 ampul 02/11/21 02:00 Ipratropium/Albuterol Sulfate 3 Ml Ampul.Neb IH Q6HRT ERIN Dexamethasone 6 mg 02/11/21 10:00 Dexamethasone 4 Mg/Ml Vial IV 02/20/21 10:01 DAILY ERIN Famotidine 20 mg 02/11/21 10:00 Famotidine 20 Mg Tab PO BID ERIN Fenofibrate 145 mg 02/11/21 10:00 Fenofibrate 145 Mg Tab PO QDAY ERIN Heparin Sodium (Porcine) 5,000 unit 02/11/21 06:00 02/11/21 05:24 Heparin 5,000 Unit/1 Ml Vial SUB-Q 5,000 unit Q8HR ERIN Administration Hydralazine HCl 10 mg 02/11/21 00:01 Hydralazine 20 Mg/1 Ml Inj IV Q6H PRN Blood Pressure Hydromorphone HCl 0.5 mg 02/10/21 23:59 Hydromorphone 1 Mg/1 Ml Inj IV Q3H PRN Pain , Severe (7-10) Ceftriaxone Sodium 2 gm in 100 mls @ 200 mls/hr 02/11/21 01:00 02/11/21 01:08 Rocephin/Ns 2 Gm/100 Ml IV 02/15/21 01:29 200 mls/hr Q24H ERIN Administration Protocol Azithromycin 500 mg in 250 mls @ 250 mls/hr 02/11/21 01:00 02/11/21 01:46 Zithromax/Ns IV 02/15/21 01:59 250 mls/hr Q24H ERIN Administration Protocol Levothyroxine Sodium 100 mcg 02/11/21 06:00 02/11/21 05:24 Levothyroxine 100 Mcg Tab PO 100 mcg DAILY@0600 ERIN Administration Metoprolol Tartrate 50 mg 02/11/21 10:00 Metoprolol Tartrate 50 Mg Tab PO DAILY [facility] Miscellaneous Medication 1 drop 02/11/21 10:00 Restasis 0.05% .ROUTE DAILY [facility] Mupirocin 1 applic 02/11/21 10:00 Mupirocin 2% Oint 22 Gm TP BID [facility] Ondansetron HCl 4 mg 02/10/21 23:59 Ondansetron 4 Mg/2 Ml Inj IV Q8H PRN Nausea And Vomiting Oxycodone/Acetaminophen 1 tab 02/10/21 23:59 Oxycodone /Acetaminophen 5-325mg Tab PO Q6H PRN Pain, Moderate (4-6) Sodium Chloride 10 ml 02/11/21 10:00 Sodium Chloride 0.9% 10 Ml Flush Syringe IV BID ERIN Sodium Chloride 10 ml 02/10/21 23:59 Sodium Chloride 0.9% 10 Ml Flush Syringe IV PRN PRN LINE FLUSH
[2021-02-11] MEDS ORDERED: MUPIROCIN 2% OINT 22 GM TP SCH (10:00)
[2021-02-11] MEDS ORDERED: MUPIROCIN TP SCH (10:00)
[2021-02-11] MEDS ORDERED: dexAMETHasone 4 MG/ML VIAL IV SCH (10:00)
[2021-02-11] MEDS ORDERED: LEVOTHYROXINE 100 MG PO SCH (10:00)
[2021-02-11] MEDS ORDERED: RESTASIS 0.05% SCH (10:00)
[2021-02-11 11:03] LABS: Blood Urea Nitrogen 10 mg/dL (7-17); Calcium 8.3 mg/dL (8.4-10.2); Hemolysis Index 26
[2021-02-11 11:13] LABS: BUN/Creatinine Ratio 14
[2021-02-11] MEDS: FAMOTIDINE 20 MG TAB PO SCH ×2 (11:37→21:47)
[2021-02-11] MEDS: FENOFIBRATE 145 MG TAB PO SCH (11:37)
[2021-02-11] MEDS: METOPROLOL TARTRATE 50 MG TAB PO SCH (11:42)
--- NOTE | 2021-02-11 12:19 | Consultation ---
History of Present Illness - Reason for Consult Consult date: 02/11/21 COVID PUI Requesting physician: ORI FELIPE - History of Present Illness The patient is a 85-year-old female with hypertension, hypothyroidism admitted to the hospital with cough and fever going on for a day. Patient's recently was diagnosed with COVID-19 and hospitalized. Upon evaluation in the ER, chest x-ray showed bilateral pulmonary opacities concerning for COVID-19. Patient with borderline hypoxia requiring supplemental oxygen by nasal cannula. Infectious diseases was consulted for COVID-19 PUI. Labs showed normal WBC, CRP, D-dimer, procalcitonin are pending. Review of Systems: reviewed in the chart, unable to obtain, minimize risk of transmission Past History Past Medical History: hypertension, hyperlipidemia, hypothyroidism, other (Hemorrhoid, macular degeneration,) Medications and Allergies Allergies Allergy/AdvReac Type Severity Reaction Status Date / Time No Known Allergies Allergy Verified 02/10/21 20:44 Home Medications Medication Instructions Recorded Confirmed Last Taken Type Centrum Vitamin 1 tab PO DAILY 08/06/14 02/11/21 08/06/14 History Fenofibrate [Tricor] 145 mg PO QDAY 08/06/14 02/11/21 08/06/14 History LORazepam 1 mg PO BID PRN 08/06/14 02/11/21 Unknown History Levothyroxine 100 mg PO DAILY 08/06/14 02/11/21 08/05/14 History Metoprolol [Lopressor TAB] 50 mg PO DAILY 08/06/14 02/11/21 08/06/14 History Restasis 0.05% 1 drop DAILY 08/06/14 02/11/21 08/06/14 History Simvastatin 20 mg PO QDAY 08/06/14 02/11/21 08/05/14 History Mupirocin [Bactroban 2% CREAM] 10 applic TP BID #1 tube 08/07/14 02/11/21 Unknown Rx Albuterol Mdi (or & Nicu Only) 2 puff IH QID PRN #1 inhalation 05/03/17 02/11/21 Unknown Rx [ProAir HFA Inhaler] HYDROcodone/APAP 5-325 [[place] 1 each PO Q6HR PRN #12 tablet 05/03/17 02/11/21 Unknown Rx 5/325] Ondansetron [Zofran Odt] 4 mg PO Q8HR #10 tab.rapdis 05/03/17 02/11/21 Unknown Rx Active Meds: Active Medications Acetaminophen (Acetaminophen 325 Mg Tab) 650 mg PO Q4H PRN PRN Reason: Pain MILD(1-3)/Fever >100.5/GIRALDO Albuterol (Albuterol 2.5 Mg/3 Ml Nebu) 2.5 mg IH Q4HRT PRN PRN Reason: Shortness Of Breath Albuterol/Ipratropium (Ipratropium/Albuterol Sulfate 3 Ml Ampul.Neb) 1 ampul IH Q6HRT [facility] Dexamethasone (Dexamethasone 4 Mg/Ml Vial) 6 mg IV DAILY [facility] Stop: 02/20/21 10:01 Last Admin: 02/11/21 11:37 Dose: 6 mg Documented by: Famotidine (Famotidine 20 Mg Tab) 20 mg PO BID [facility] Last Admin: 02/11/21 11:37 Dose: 20 mg Documented by: Fenofibrate (Fenofibrate 145 Mg Tab) 145 mg PO QDAY [facility] Last Admin: 02/11/21 11:37 Dose: 145 mg Documented by: Heparin Sodium (Porcine) (Heparin 5,000 Unit/1 Ml Vial) 5,000 unit SUB-Q Q8HR [facility] Last Admin: 02/11/21 05:24 Dose: 5,000 unit Documented by: Hydralazine HCl (Hydralazine 20 Mg/1 Ml Inj) 10 mg IV Q6H PRN PRN Reason: Blood Pressure Hydromorphone HCl (Hydromorphone 1 Mg/1 Ml Inj) 0.5 mg IV Q3H PRN PRN Reason: Pain , Severe (7-10) Ceftriaxone Sodium (Rocephin/Ns 2 Gm/100 Ml) 2 gm in 100 mls @ 200 mls/hr IV Q24H [facility]; Protocol Stop: 02/15/21 01:29 Last Admin: 02/11/21 01:08 Dose: 200 mls/hr Documented by: Azithromycin (Zithromax/Ns) 500 mg in 250 mls @ 250 mls/hr IV Q24H [facility]; Protocol Stop: 02/15/21 01:59 Last Admin: 02/11/21 01:46 Dose: 250 mls/hr Documented by: Levothyroxine Sodium (Levothyroxine 100 Mcg Tab) 100 mcg PO DAILY@0600 [facility] Last Admin: 02/11/21 05:24 Dose: 100 mcg Documented by: Metoprolol Tartrate (Metoprolol Tartrate 50 Mg Tab) 50 mg PO DAILY [facility] Last Admin: 02/11/21 11:42 Dose: 50 mg Documented by: Miscellaneous Medication (Restasis 0.05%) 1 drop .ROUTE DAILY [facility] Ondansetron HCl (Ondansetron 4 Mg/2 Ml Inj) 4 mg IV Q8H PRN PRN Reason: Nausea And Vomiting Oxycodone/Acetaminophen (Oxycodone /Acetaminophen 5-325mg Tab) 1 tab PO Q6H PRN PRN Reason: Pain, Moderate (4-6) Sodium Chloride (Sodium Chloride 0.9% 10 Ml Flush Syringe) 10 ml IV BID [facility] Last Admin: 02/11/21 11:38 Dose: 10 ml Documented by: Sodium Chloride (Sodium Chloride 0.9% 10 Ml Flush Syringe) 10 ml IV PRN PRN PRN Reason: LINE FLUSH Physical Examination - Physical Exam Narrative exam: Physical Exam (reviewed in chart to minimize risk of transmission) Constitutional: deferred Head, Ears, Nose: deferred Eyes: deferred Neck: deferred Oral: deferred Cardiovascular: deferred Respiratory: deferred GI: deferred Musculoskeletal: deferred Skin: deferred Hem/Lymphatic: deferred Psych: deferred Neurological: deferred - Constitutional Vitals: Vital Signs Temp Pulse Resp BP Pulse Ox 98.4 F 87 16 161/99 92 02/11/21 04:25 02/11/21 11:42 02/11/21 04:25 02/11/21 11:42 02/11/21 10:06 Temperature -Last 24 Hours Temperature 98.4 F Temperature 99.4 F Temperature 100.5 F Results - Labs CBC & Chem 7: 02/10/21 20:44 02/11/21 10:18 Labs: Abnormal lab results 02/10/21 02/10/21 02/11/21 Range/Units 20:44 20:44 10:18 Hgb 15.5 H (10.1-14.3) gm/dl Hct 45.9 H (30.3-42.9) % RDW 13.0 L (13.2-15.2) % Seg Neuts % (Manual) 76.0 H (40.0-70.0) % Lymphocytes % (Manual) 13.0 L (13.4-35.0) % Monocytes % (Manual) 11.0 H (0.0-7.3) % Lymphocytes # (Manual) 0.6 L (1.2-5.4) K/mm3 Sodium 128 L 134 L (137-145) mmol/L Chloride 93.2 L 97.3 L (98-107) mmol/L Glucose 110 H 105 H (65-100) mg/dL Calcium 8.3 L (8.4-10.2) mg/dL AST 84 H (5-40) units/L Total Creatine Kinase 271 H (30-135) units/L Albumin 3.6 L (3.9-5) g/dL - Imaging and Cardiology Chest x-ray: report reviewed, image reviewed (b/l opacities) Assessment and Plan Cultures: SARS CoV2 PCR: Pending A/P: 85-year-old female with hypertension, hypothyroidism admitted to the hospital with cough and fever: #Bilateral pneumonia: High suspicion for COVID-19 #Acute hypoxic respiratory failure: Recs: -IV/PO Dexamethasone x 10 days -IV remdesivir x 5 days ordered given high suspicion for COVID-19 -prophylactic anticoagulation based on d-dimer per hospital protocol -if procalcitonin is low, abx not needed -trend ferritin, d-dimer, CRP every 2-3 days Leonor Navarro MD, FACP [facility] O: [phone] F: [phone]
[2021-02-11] MEDS ORDERED: REMDESIVIR 200 MG in SODIUM CHLORIDE 0.9% 250ML 250 ML IV ONE (16:00)
[2021-02-11] MEDS: SODIUM CHLORIDE 0.9% 50 ML IVPB IV SCH (17:11)
[2021-02-11 17:47] LABS: Bilirubin,Urine NEG (Negative); Blood,Urine NEG (Negative); Color,Urine Yellow (Yellow); Mucus,Urine FEW /HPF; Protein,Urine <15 mg/dL mg/dL (Negative); Urobilinogen,Urine < 2.0 mg/dL (<2.0); WBC,Urine < 1.0 /HPF (0.0-6.0)
--- NOTE | 2021-02-11 20:47 | Event Note ---
Date: 02/11/21 [place]ati PCR test is positive; Patient has hypoxia/requiring 2 L nasal cannula supplemental oxygen Continue isolation, patient is already started on steroids and remdesivir Follow inflammatory markers, oxygen evaluation, patient is on 2 L nasal cannula oxygen Home O2 evaluation prior to discharge, prone positioning And supportive care, ID following Plan of care reviewed with the patient and her nurse
[2021-02-11] MEDS: IPRATROPIUM/ALBUTEROL SULFATE 3 ML AMPUL.NEB IH SCH ×3 (21:33→22:21)
[2021-02-12] MEDS: cefTRIAXone/NS 2 GM/100 ML 2 GM/100 ML BAG IV SCH (01:04)
[2021-02-12] MEDS: AZITHROMYCIN/NS 500 MG/250 ML 500 MG/250 ML BAG IV SCH (01:04)
[2021-02-12] MEDS: IPRATROPIUM/ALBUTEROL SULFATE 3 ML AMPUL.NEB IH SCH ×3 (03:25→20:58)
[2021-02-12] MEDS: HEPARIN 5,000 UNIT/1 ML VIAL SUB-Q SCH ×3 (05:54→22:28)
[2021-02-12] MEDS: LEVOTHYROXINE 100 MCG TAB PO SCH (05:54)
[2021-02-12 07:17] LABS: Mean Corpuscular HGB Conc 33 % (30-34); Mean Corpuscular Volume 96 fl (79-97); Platelet Count 262 K/mm3 (140-440); Red Blood Count 4.81 M/mm3 (3.65-5.03)
[2021-02-12 07:37] LABS: Alanine Aminotransferase 41 units/L (7-56); Albumin 3.7 g/dL (3.9-5); Blood Urea Nitrogen 16 mg/dL (7-17); Calcium 8.5 mg/dL (8.4-10.2); Hemolysis Index 25
[2021-02-12 07:45] LABS: BUN/Creatinine Ratio 23
[2021-02-12 10:02] LABS: Monocytes # (Auto) 0.5 K/mm3 (0.0-0.8)
[2021-02-12] MEDS: HALOPERIDOL LACTATE 5 MG/1 ML INJ IM PRN ×2 (10:26→15:49)
[2021-02-12] MEDS: FENOFIBRATE 145 MG TAB PO SCH (10:26)
[2021-02-12] MEDS: DEXAMETHASONE 4 MG TAB PO SCH (10:26)
[2021-02-12] MEDS: FAMOTIDINE 20 MG TAB PO SCH ×2 (10:26→22:28)
--- NOTE | 2021-02-12 10:27 | Progress Note ---
Assessment and Plan Assessment and plan: --Hyponatremia ; Current Visit: Yes Status: Acute Improved, closely monitor electrolytes --Bilateral pneumonia Current Visit: Yes Status: Acute Continue empiric antibiotics , follow cultures Probably due to Covid pneumonia --Hypertension Current Visit: Yes Status: Acute Continue current antihypertensives As needed hydralazine -- Hypothyroidism Current Visit: Yes Status: Acute Stable. We will continue the home medication. Continue Synthroid --Hyperlipidemia Current Visit: Yes Status: Acute Low-cholesterol diet, lipid-lowering medication -- DVT prophylaxis Current Visit: Yes Status: Acute Heparin 5000 units subcu every 8 hours 02/12/21 Patient with Covid-19 pneumonia with acute resp failure. Has been restless, agitated. Started Haldol prn, medical soft wrist restraints. History Interval history: Patient with Covid-19 Fever Cough Agitation Hospitalist Physical - Physical exam Narrative exam: Gen: Not in acute distress, lying in bed HEENT:Normocephalic,atraumatic Neck:supple, No JVD Lungs: bilateral rales, no wheeze Heart:S1 and S2 reg, no murmurs, rubs or gallop Abd:soft, non tender, non distended, normal bowel sounds Ext; No edema, no clubbing, no cyanosis Neuro:Awake,alert, moves all ext, - Constitutional Vitals: Temp Pulse Resp BP Pulse Ox 98.8 F 78 20 131/78 95 02/12/21 05:49 02/12/21 05:49 02/12/21 05:49 02/12/21 05:49 02/12/21 05:49 General appearance: Present: no acute distress, well-nourished HEART Score - HEART Score Troponin: Troponin T < 0.010 ng/mL (0.00-0.029) 02/10/21 20:44 Results - Labs CBC & Chem 7: 02/12/21 06:40 02/12/21 06:40 Labs: Laboratory Last Values WBC 2.9 K/mm3 (4.5-11.0) L 02/12/21 06:40 RBC 4.81 M/mm3 (3.65-5.03) 02/12/21 06:40 Hgb 15.0 gm/dl (10.1-14.3) H 02/12/21 06:40 Hct 46.0 % (30.3-42.9) H 02/12/21 06:40 MCV 96 fl (79-97) 02/12/21 06:40 MCH 31 pg (28-32) 02/12/21 06:40 MCHC 33 % (30-34) 02/12/21 06:40 RDW 13.0 % (13.2-15.2) L 02/12/21 06:40 Plt Count 262 K/mm3 (140-440) 02/12/21 06:40 [place] % (Auto) Roll Tension Tester 02/12/21 06:40 Eos % (Auto) 0.0 % (0.0-4.3) 02/12/21 06:40 Baso % (Auto) Roll Tension Tester 02/10/21 20:44 [place] # (Auto) 0.5 K/mm3 (0.0-0.8) 02/12/21 06:40 Eos # (Auto) 0.0 K/mm3 (0.0-0.4) 02/12/21 06:40 Baso # (Auto) 0.0 K/mm3 (0.0-0.1) 02/12/21 06:40 Add Manual Diff Complete 02/10/21 20:44 Total Counted 100 02/10/21 20:44 Seg Neutrophils % 62.3 % (40.0-70.0) 02/12/21 06:40 Seg Neuts % (Manual) 76.0 % (40.0-70.0) H 02/10/21 20:44 Lymphocytes % (Manual) 13.0 % (13.4-35.0) L 02/10/21 20:44 Monocytes % (Manual) 11.0 % (0.0-7.3) H 02/10/21 20:44 Nucleated RBC % Not Reportable 02/10/21 20:44 Seg Neutrophils # 1.8 K/mm3 (1.8-7.7) 02/12/21 06:40 Seg Neutrophils # Man 3.6 K/mm3 (1.8-7.7) 02/10/21 20:44 Band Neutrophils # 0.0 K/mm3 02/10/21 20:44 Lymphocytes # (Manual) 0.6 K/mm3 (1.2-5.4) L 02/10/21 20:44 Abs React Lymphs (Man) 0.0 K/mm3 02/10/21 20:44 Monocytes # (Manual) 0.5 K/mm3 (0.0-0.8) 02/10/21 20:44 Eosinophils # (Manual) 0.0 K/mm3 (0.0-0.4) 02/10/21 20:44 Basophils # (Manual) 0.0 K/mm3 (0.0-0.1) 02/10/21 20:44 Metamyelocytes # 0.0 K/mm3 02/10/21 20:44 Myelocytes # 0.0 K/mm3 02/10/21 20:44 Promyelocytes # 0.0 K/mm3 02/10/21 20:44 Blast Cells # 0.0 K/mm3 02/10/21 20:44 WBC Morphology Not Reportable 02/10/21 20:44 Hypersegmented Neuts Not Reportable 02/10/21 20:44 Hyposegmented Neuts Not Reportable 02/10/21 20:44 Hypogranular Neuts Not Reportable 02/10/21 20:44 Smudge Cells Not Reportable 02/10/21 20:44 Toxic Granulation Not Reportable 02/10/21 20:44 Toxic Vacuolation Not Reportable 02/10/21 20:44 Dohle Bodies Not Reportable 02/10/21 20:44 Pelger-Huet Anomaly Not Reportable 02/10/21 20:44 Ezekiel Rods Not Reportable 02/10/21 20:44 Platelet Estimate Consistent w auto 02/10/21 20:44 Clumped Platelets Not Reportable 02/10/21 20:44 Plt Clumps, EDTA Not Reportable 02/10/21 20:44 Large Platelets Not Reportable 02/10/21 20:44 Giant Platelets Not Reportable 02/10/21 20:44 Platelet Satelliting Not Reportable 02/10/21 20:44 Plt Morphology Comment Not Reportable 02/10/21 20:44 RBC Morphology Normal 02/10/21 20:44 Dimorphic RBCs Not Reportable 02/10/21 20:44 Polychromasia Not Reportable 02/10/21 20:44 Hypochromasia Not Reportable 02/10/21 20:44 Poikilocytosis Not Reportable 02/10/21 20:44 Anisocytosis Not Reportable 02/10/21 20:44 Microcytosis Not Reportable 02/10/21 20:44 Macrocytosis Not Reportable 02/10/21 20:44 Spherocytes Not Reportable 02/10/21 20:44 Pappenheimer Bodies Not Reportable 02/10/21 20:44 Sickle Cells Not Reportable 02/10/21 20:44 Target Cells Not Reportable 02/10/21 20:44 Tear Drop Cells Not Reportable 02/10/21 20:44 Ovalocytes Not Reportable 02/10/21 20:44 Helmet Cells Not Reportable 02/10/21 20:44 [place] Bodies Not Reportable 02/10/21 20:44 [place] Rings Not Reportable 02/10/21 20:44 [place] Cells Not Reportable 02/10/21 20:44 Bite Cells Not Reportable 02/10/21 20:44 Crenated Cell Not Reportable 02/10/21 20:44 Elliptocytes Not Reportable 02/10/21 20:44 Acanthocytes (Spur) Not Reportable 02/10/21 20:44 Rouleaux Not Reportable 02/10/21 20:44 Hemoglobin C Crystals Not Reportable 02/10/21 20:44 Schistocytes Not Reportable 02/10/21 20:44 Malaria parasites Not Reportable 02/10/21 20:44 Fabian Bodies Not Reportable 02/10/21 20:44 Hem Pathologist Commnt No 02/10/21 20:44 APTT 32.5 Sec. (24.2-36.6) 02/10/21 20:44 D-Dimer 430.34 ng/mlDDU (0-234) H 02/12/21 06:40 Sodium 132 mmol/L (137-145) L 02/12/21 06:40 Potassium 4.5 mmol/L (3.6-5.0) 02/12/21 06:40 Chloride 96.0 mmol/L (98-107) L 02/12/21 06:40 Carbon Dioxide 22 mmol/L (22-30) 02/12/21 06:40 Anion Gap 19 mmol/L 02/12/21 06:40 BUN 16 mg/dL (7-17) 02/12/21 06:40 Creatinine 0.7 mg/dL (0.6-1.2) 02/12/21 06:40 Estimated GFR > 60 ml/min 02/12/21 06:40 BUN/Creatinine Ratio 23 % 02/12/21 06:40 Glucose 111 mg/dL (65-100) H 02/12/21 06:40 POC Glucose 100 mg/dL (70-105) 02/12/21 08:02 Lactic Acid 0.90 mmol/L (0.7-2.0) 02/10/21 20:44 Calcium 8.5 mg/dL (8.4-10.2) 02/12/21 06:40 Ferritin 999.7 ng/mL (10.0-200.0) H 02/12/21 06:40 Total Bilirubin 0.30 mg/dL (0.1-1.2) 02/12/21 06:40 AST 53 units/L (5-40) H 02/12/21 06:40 ALT 41 units/L (7-56) 02/12/21 06:40 Alkaline Phosphatase 51 units/L (35-129) 02/12/21 06:40 Total Creatine Kinase 271 units/L (30-135) H 02/10/21 20:44 Troponin T < 0.010 ng/mL (0.00-0.029) 02/10/21 20:44 C-Reactive Protein 0.30 mg/dL (0.00-1.30) 02/12/21 06:40 NT-Pro-B Natriuret Pep 470.8 pg/mL (0-900) 02/10/21 20:44 Total Protein 7.3 g/dL (6.3-8.2) 02/12/21 06:40 Albumin 3.7 g/dL (3.9-5) L 02/12/21 06:40 Albumin/Globulin Ratio 1.0 % 02/12/21 06:40 Urine Color Yellow (Yellow) 02/11/21 17:30 Urine Turbidity Clear (Clear) 02/11/21 17:30 Urine pH 7.0 (5.0-7.0) 02/11/21 17:30 Ur Specific [place] 1.011 (1.003-1.030) 02/11/21 17:30 Urine Protein <15 mg/dl mg/dL (Negative) 02/11/21 17:30 Urine Glucose (UA) Neg mg/dL (Negative) 02/11/21 17:30 Urine Ketones Neg mg/dL (Negative) 02/11/21 17:30 Urine Blood Neg (Negative) 02/11/21 17:30 Urine Nitrite Neg (Negative) 02/11/21 17:30 Urine Bilirubin Neg (Negative) 02/11/21 17:30 Urine Urobilinogen < 2.0 mg/dL (<2.0) 02/11/21 17:30 Ur Leukocyte Esterase Neg (Negative) 02/11/21 17:30 Urine WBC (Auto) < 1.0 /HPF (0.0-6.0) 02/11/21 17:30 Urine RBC (Auto) 1.0 /HPF (0.0-6.0) 02/11/21 17:30 U Epithel Cells (Auto) < 1.0 /HPF (0-13.0) 02/11/21 17:30 Urine Mucus Few /HPF 02/11/21 17:30 Coronavirus (PCR) Positive (Negative) A 02/11/21 Unknown Blood Type AB POSITIVE 02/10/21 20:44 Antibody Screen Negative 02/10/21 20:44 Garcia/IV: Voiding Method External Female Catheter Active Medications - Current Medications Current Medications: Generic Name Dose Route Start Last Admin Trade Name Freq PRN Reason Stop Dose Admin Acetaminophen 650 mg 02/10/21 23:59 Acetaminophen 325 Mg Tab PO Q4H PRN Pain MILD(1-3)/Fever >100.5/GIRALDO Albuterol 2.5 mg 02/10/21 23:59 Albuterol 2.5 Mg/3 Ml Nebu IH Q4HRT PRN Shortness Of Breath Albuterol/Ipratropium 1 ampul 02/12/21 08:00 Ipratropium/Albuterol Sulfate 3 Ml Ampul.Neb IH TIDRT ERIN Dexamethasone 6 mg 02/12/21 10:00 Dexamethasone 4 Mg Tab PO 02/20/21 12:00 DAILY ERIN Famotidine 20 mg 02/11/21 10:00 02/11/21 21:47 Famotidine 20 Mg Tab PO 20 mg BID ERIN Administration Fenofibrate 145 mg 02/11/21 10:00 02/11/21 11:37 Fenofibrate 145 Mg Tab PO 145 mg QDAY ERIN Administration Haloperidol Lactate 5 mg 02/12/21 10:14 Haloperidol Lactate 5 Mg/1 Ml Inj IM Q6H PRN Agitation Heparin Sodium (Porcine) 5,000 unit 02/11/21 06:00 02/12/21 05:54 Heparin 5,000 Unit/1 Ml Vial SUB-Q 5,000 unit Q8HR ERIN Administration Hydralazine HCl 10 mg 02/11/21 00:01 Hydralazine 20 Mg/1 Ml Inj IV Q6H PRN Blood Pressure Hydromorphone HCl 0.5 mg 02/10/21 23:59 Hydromorphone 1 Mg/1 Ml Inj IV Q3H PRN Pain , Severe (7-10) Ceftriaxone Sodium 2 gm in 100 mls @ 200 mls/hr 02/11/21 01:00 02/12/21 01:04 Rocephin/Ns 2 Gm/100 Ml IV 02/15/21 01:29 200 mls/hr Q24H ERIN Administration Protocol Azithromycin 500 mg in 250 mls @ 250 mls/hr 02/11/21 01:00 02/12/21 01:04 Zithromax/Ns IV 02/15/21 01:59 250 mls/hr Q24H ERIN Administration Protocol REMDESIVIR 100 mg/ Sodium 250 mls @ 500 mls/hr 02/12/21 21:00 Chloride IV 02/15/21 21:29 Q24HR@2100 [facility] Levothyroxine Sodium 100 mcg 02/11/21 06:00 02/12/21 05:54 Levothyroxine 100 Mcg Tab PO 100 mcg DAILY@0600 [facility] Administration Metoprolol Tartrate 50 mg 02/11/21 10:00 02/11/21 11:42 Metoprolol Tartrate 50 Mg Tab PO 50 mg DAILY [facility] Administration Miscellaneous Medication 1 drop 02/11/21 10:00 Restasis 0.05% .ROUTE DAILY [facility] Ondansetron HCl 4 mg 02/10/21 23:59 Ondansetron 4 Mg/2 Ml Inj IV Q8H PRN Nausea And Vomiting Oxycodone/Acetaminophen 1 tab 02/10/21 23:59 Oxycodone /Acetaminophen 5-325mg Tab PO Q6H PRN Pain, Moderate (4-6) Sodium Chloride 10 ml 02/11/21 10:00 02/11/21 21:48 Sodium Chloride 0.9% 10 Ml Flush Syringe IV 10 ml BID ERIN Administration Sodium Chloride 10 ml 02/10/21 23:59 Sodium Chloride 0.9% 10 Ml Flush Syringe IV PRN PRN LINE FLUSH Sodium Chloride 50 ml 02/11/21 16:00 02/11/21 17:11 Sodium Chloride 0.9% 50 Ml Ivpb IV 02/15/21 21:01 50 ml Q24HR@2100 ERIN Administration
[2021-02-12] MEDS: METOPROLOL TARTRATE 50 MG TAB PO SCH (10:31)
--- NOTE | 2021-02-12 11:14 | Progress Note ---
Assessment and Plan Cultures: SARS CoV2 PCR: positive A/P: 85-year-old female with hypertension, hypothyroidism admitted to the hospital with cough and fever: #Bilateral pneumonia secondary to COVID-19: hypoxic requiring NC. Labs showed leukopenia, D-dimer 430, ferritin 999, AST 53, CRP 0.3. #Acute hypoxic respiratory failure: on NC. #Leucopenia, mild transaminitis: secondary to viral illness Recs: -continue IV/PO Dexamethasone x 10 days -continue IV remdesivir x 5 days -prophylactic anticoagulation based on d-dimer per hospital protocol -if procalcitonin is low, abx not needed Leonor Navarro MD, FACP [facility] O: [phone] F: [phone] Subjective Date of service: 02/12/21 Interval history: No fever. COVID-19 PCR came back positive. Remains on oxygen by nasal cannula. Labs showed leukopenia today. D-dimer 430, ferritin 999, AST 53, CRP 0.3 Objective - Exam Narrative Exam: Physical Exam (reviewed in chart to minimize risk of transmission) Constitutional: deferred Head, Ears, Nose: deferred Eyes: deferred Neck: deferred Oral: deferred Cardiovascular: deferred Respiratory: deferred GI: deferred Musculoskeletal: deferred Skin: deferred Hem/Lymphatic: deferred Psych: deferred Neurological: deferred - Constitutional Vitals: Vital Signs Temp Pulse Resp BP Pulse Ox 98.8 F 78 20 131/78 95 02/12/21 05:49 02/12/21 05:49 02/12/21 05:49 02/12/21 05:49 02/12/21 05:49 Temperature -Last 24 Hours Temperature 98.8 F Temperature 98.6 F Temperature 98.2 F Temperature 99.2 F - Labs CBC & Chem 7: 02/12/21 06:40 02/12/21 06:40 Labs: Abnormal lab results 02/11/21 02/12/21 02/12/21 Range/Units Unknown 06:40 06:40 WBC 2.9 L (4.5-11.0) K/mm3 Hgb 15.0 H (10.1-14.3) gm/dl Hct 46.0 H (30.3-42.9) % RDW 13.0 L (13.2-15.2) % D-Dimer (0-234) ng/mlDDU Sodium 132 L (137-145) mmol/L Chloride 96.0 L (98-107) mmol/L Glucose 111 H (65-100) mg/dL Ferritin (10.0-200.0) ng/mL AST 53 H (5-40) units/L Albumin 3.7 L (3.9-5) g/dL Coronavirus (PCR) Positive A (Negative) 02/12/21 02/12/21 Range/Units 06:40 06:40 WBC (4.5-11.0) K/mm3 Hgb (10.1-14.3) gm/dl Hct (30.3-42.9) % RDW (13.2-15.2) % D-Dimer 430.34 H (0-234) ng/mlDDU Sodium (137-145) mmol/L Chloride (98-107) mmol/L Glucose (65-100) mg/dL Ferritin 999.7 H (10.0-200.0) ng/mL AST (5-40) units/L Albumin (3.9-5) g/dL Coronavirus (PCR) (Negative)
[2021-02-12 17:36] LABS: Band Neutrophils # (Manual) 0.2 K/mm3; Total Cells Counted 100
[2021-02-12 17:37] LABS: Platelet Estimate Consistent w Auto
[2021-02-12] MEDS: REMDESIVIR 100 MG in SODIUM CHLORIDE 0.9% 250ML 250 ML IV SCH (22:29)
[2021-02-12] MEDS: SODIUM CHLORIDE 0.9% 50 ML IVPB IV SCH (22:29)
[2021-02-13] MEDS: cefTRIAXone/NS 2 GM/100 ML 2 GM/100 ML BAG IV SCH (01:28)
[2021-02-13] MEDS: AZITHROMYCIN/NS 500 MG/250 ML 500 MG/250 ML BAG IV SCH (01:28)
[2021-02-13] MEDS: LEVOTHYROXINE 100 MCG TAB PO SCH (05:51)
[2021-02-13] MEDS: HEPARIN 5,000 UNIT/1 ML VIAL SUB-Q SCH ×3 (05:51→21:39)
[2021-02-13 08:03] LABS: Alanine Aminotransferase 36 units/L (7-56); Albumin 3.4 g/dL (3.9-5); Blood Urea Nitrogen 17 mg/dL (7-17); Calcium 8.4 mg/dL (8.4-10.2); Hemolysis Index 6
[2021-02-13 08:08] LABS: BUN/Creatinine Ratio 28
[2021-02-13] MEDS: FAMOTIDINE 20 MG TAB PO SCH ×2 (09:19→21:40)
[2021-02-13] MEDS: FENOFIBRATE 145 MG TAB PO SCH (09:19)
[2021-02-13] MEDS: METOPROLOL TARTRATE 50 MG TAB PO SCH (09:19)
[2021-02-13] MEDS: DEXAMETHASONE 4 MG TAB PO SCH (09:19)
--- NOTE | 2021-02-13 10:31 | Progress Note ---
Assessment and Plan Assessment and plan: --Hyponatremia ; Current Visit: Yes Status: Acute Improved, closely monitor electrolytes --Bilateral pneumonia Current Visit: Yes Status: Acute Continue empiric antibiotics , follow cultures Probably due to Covid pneumonia --Hypertension Current Visit: Yes Status: Acute Continue current antihypertensives As needed hydralazine -- Hypothyroidism Current Visit: Yes Status: Acute Stable. We will continue the home medication. Continue Synthroid --Hyperlipidemia Current Visit: Yes Status: Acute Low-cholesterol diet, lipid-lowering medication -- DVT prophylaxis Current Visit: Yes Status: Acute Heparin 5000 units subcu every 8 hours 02/12/21 Patient with Covid-19 pneumonia with acute resp failure. Has been restless, agitated. Started Haldol prn, medical soft wrist restraints. 02/13/21 Patient with Covid-19, agitation. Continue haldol prn History Interval history: Patient with Covid-19 Fever Cough Agitation Hospitalist Physical - Physical exam Narrative exam: Gen: Not in acute distress, lying in bed HEENT:Normocephalic,atraumatic Neck:supple, No JVD Lungs: bilateral rales, no wheeze Heart:S1 and S2 reg, no murmurs, rubs or gallop Abd:soft, non tender, non distended, normal bowel sounds Ext; No edema, no clubbing, no cyanosis Neuro:Awake,alert, moves all ext, - Constitutional Vitals: Temp Pulse Resp BP Pulse Ox 97.5 F L 80 18 157/95 95 02/13/21 04:27 02/13/21 09:19 02/13/21 04:27 02/13/21 09:19 02/13/21 04:27 General appearance: Present: no acute distress, well-nourished HEART Score - HEART Score Troponin: Troponin T < 0.010 ng/mL (0.00-0.029) 02/10/21 20:44 Results - Labs CBC & Chem 7: 02/12/21 06:40 02/13/21 07:05 Labs: Laboratory Last Values WBC 2.9 K/mm3 (4.5-11.0) L 02/12/21 06:40 RBC 4.81 M/mm3 (3.65-5.03) 02/12/21 06:40 Hgb 15.0 gm/dl (10.1-14.3) H 02/12/21 06:40 Hct 46.0 % (30.3-42.9) H 02/12/21 06:40 MCV 96 fl (79-97) 02/12/21 06:40 MCH 31 pg (28-32) 02/12/21 06:40 MCHC 33 % (30-34) 02/12/21 06:40 RDW 13.0 % (13.2-15.2) L 02/12/21 06:40 Plt Count 262 K/mm3 (140-440) 02/12/21 06:40 [place] % (Auto) Core Cutter 02/12/21 06:40 Eos % (Auto) 0.0 % (0.0-4.3) 02/12/21 06:40 Baso % (Auto) Core Cutter 02/10/21 20:44 [place] # (Auto) 0.5 K/mm3 (0.0-0.8) 02/12/21 06:40 Eos # (Auto) 0.0 K/mm3 (0.0-0.4) 02/12/21 06:40 Baso # (Auto) 0.0 K/mm3 (0.0-0.1) 02/12/21 06:40 Add Manual Diff Complete 02/12/21 06:40 Total Counted 100 02/12/21 06:40 Seg Neutrophils % 62.3 % (40.0-70.0) 02/12/21 06:40 Seg Neuts % (Manual) 60.0 % (40.0-70.0) 02/12/21 06:40 Band Neutrophils % 7.0 % 02/12/21 06:40 Lymphocytes % (Manual) 32.0 % (13.4-35.0) 02/12/21 06:40 Monocytes % (Manual) 11.0 % (0.0-7.3) H 02/10/21 20:44 Metamyelocytes % 1.0 % 02/12/21 06:40 Nucleated RBC % 35.0 % (0.0-0.9) H 02/12/21 06:40 Seg Neutrophils # 1.8 K/mm3 (1.8-7.7) 02/12/21 06:40 Seg Neutrophils # Man 1.7 K/mm3 (1.8-7.7) L 02/12/21 06:40 Band Neutrophils # 0.2 K/mm3 02/12/21 06:40 Lymphocytes # (Manual) 0.9 K/mm3 (1.2-5.4) L 02/12/21 06:40 Abs React Lymphs (Man) 0.0 K/mm3 02/12/21 06:40 Monocytes # (Manual) 0.0 K/mm3 (0.0-0.8) 02/12/21 06:40 Eosinophils # (Manual) 0.0 K/mm3 (0.0-0.4) 02/12/21 06:40 Basophils # (Manual) 0.0 K/mm3 (0.0-0.1) 02/12/21 06:40 Metamyelocytes # 0.0 K/mm3 02/12/21 06:40 Myelocytes # 0.0 K/mm3 02/12/21 06:40 Promyelocytes # 0.0 K/mm3 02/12/21 06:40 Blast Cells # 0.0 K/mm3 02/12/21 06:40 WBC Morphology Not Reportable 02/12/21 06:40 Hypersegmented Neuts Not Reportable 02/12/21 06:40 Hyposegmented Neuts Not Reportable 02/12/21 06:40 Hypogranular Neuts Not Reportable 02/12/21 06:40 Smudge Cells Not Reportable 02/12/21 06:40 Toxic Granulation Not Reportable 02/12/21 06:40 Toxic Vacuolation Not Reportable 02/12/21 06:40 Dohle Bodies Not Reportable 02/12/21 06:40 Pelger-Huet Anomaly Not Reportable 02/12/21 06:40 Ezekiel Rods Not Reportable 02/12/21 06:40 Platelet Estimate Consistent w auto 02/12/21 06:40 Clumped Platelets Not Reportable 02/12/21 06:40 Plt Clumps, EDTA Not Reportable 02/12/21 06:40 Large Platelets Not Reportable 02/12/21 06:40 Giant Platelets Not Reportable 02/12/21 06:40 Platelet Satelliting Not Reportable 02/12/21 06:40 Plt Morphology Comment Not Reportable 02/12/21 06:40 RBC Morphology Not Reportable 02/12/21 06:40 Dimorphic RBCs Not Reportable 02/12/21 06:40 Polychromasia Not Reportable 02/12/21 06:40 Hypochromasia Not Reportable 02/12/21 06:40 Poikilocytosis Not Reportable 02/12/21 06:40 Anisocytosis Not Reportable 02/12/21 06:40 Microcytosis Not Reportable 02/12/21 06:40 Macrocytosis Not Reportable 02/12/21 06:40 Spherocytes Not Reportable 02/12/21 06:40 Pappenheimer Bodies Not Reportable 02/12/21 06:40 Sickle Cells Not Reportable 02/12/21 06:40 Target Cells Not Reportable 02/12/21 06:40 Tear Drop Cells Not Reportable 02/12/21 06:40 Ovalocytes Not Reportable 02/12/21 06:40 Helmet Cells Not Reportable 02/12/21 06:40 [place] Bodies Not Reportable 02/12/21 06:40 [place] Rings Not Reportable 02/12/21 06:40 [place] Cells Not Reportable 02/12/21 06:40 Bite Cells Not Reportable 02/12/21 06:40 Crenated Cell Not Reportable 02/12/21 06:40 Elliptocytes Not Reportable 02/12/21 06:40 Acanthocytes (Spur) Not Reportable 02/12/21 06:40 Rouleaux Not Reportable 02/12/21 06:40 Hemoglobin C Crystals Not Reportable 02/12/21 06:40 Schistocytes Not Reportable 02/12/21 06:40 Malaria parasites Not Reportable 02/12/21 06:40 Fabian Bodies Not Reportable 02/12/21 06:40 Hem Pathologist Commnt No 02/12/21 06:40 APTT 32.5 Sec. (24.2-36.6) 02/10/21 20:44 D-Dimer 430.34 ng/mlDDU (0-234) H 02/12/21 06:40 Sodium 135 mmol/L (137-145) L 02/13/21 07:05 Potassium 4.0 mmol/L (3.6-5.0) 02/13/21 07:05 Chloride 99.3 mmol/L (98-107) 02/13/21 07:05 Carbon Dioxide 24 mmol/L (22-30) 02/13/21 07:05 Anion Gap 16 mmol/L 02/13/21 07:05 BUN 17 mg/dL (7-17) 02/13/21 07:05 Creatinine 0.6 mg/dL (0.6-1.2) 02/13/21 07:05 Estimated GFR > 60 ml/min 02/13/21 07:05 BUN/Creatinine Ratio 28 % 02/13/21 07:05 Glucose 91 mg/dL (65-100) 02/13/21 07:05 POC Glucose 145 mg/dL (70-105) H 02/12/21 12:16 Lactic Acid 0.90 mmol/L (0.7-2.0) 02/10/21 20:44 Calcium 8.4 mg/dL (8.4-10.2) 02/13/21 07:05 Ferritin 999.7 ng/mL (10.0-200.0) H 02/12/21 06:40 Total Bilirubin 0.30 mg/dL (0.1-1.2) 02/13/21 07:05 AST 49 units/L (5-40) H 02/13/21 07:05 ALT 36 units/L (7-56) 02/13/21 07:05 Alkaline Phosphatase 51 units/L (35-129) 02/13/21 07:05 Total Creatine Kinase 271 units/L (30-135) H 02/10/21 20:44 Troponin T < 0.010 ng/mL (0.00-0.029) 02/10/21 20:44 C-Reactive Protein 0.30 mg/dL (0.00-1.30) 02/12/21 06:40 NT-Pro-B Natriuret Pep 470.8 pg/mL (0-900) 02/10/21 20:44 Total Protein 7.4 g/dL (6.3-8.2) 02/13/21 07:05 Albumin 3.4 g/dL (3.9-5) L 02/13/21 07:05 Albumin/Globulin Ratio 0.9 % 02/13/21 07:05 Urine Color Yellow (Yellow) 02/11/21 17:30 Urine Turbidity Clear (Clear) 02/11/21 17:30 Urine pH 7.0 (5.0-7.0) 02/11/21 17:[address] [place] 1.011 (1.003-1.030) 02/11/21 17:30 Urine Protein <15 mg/dl mg/dL (Negative) 02/11/21 17:30 Urine Glucose (UA) Neg mg/dL (Negative) 02/11/21 17:30 Urine Ketones Neg mg/dL (Negative) 02/11/21 17:30 Urine Blood Neg (Negative) 02/11/21 17:30 Urine Nitrite Neg (Negative) 02/11/21 17:30 Urine Bilirubin Neg (Negative) 02/11/21 17:30 Urine Urobilinogen < 2.0 mg/dL (<2.0) 02/11/21 17:30 Ur Leukocyte Esterase Neg (Negative) 02/11/21 17:30 Urine WBC (Auto) < 1.0 /HPF (0.0-6.0) 02/11/21 17:30 Urine RBC (Auto) 1.0 /HPF (0.0-6.0) 02/11/21 17:30 U Epithel Cells (Auto) < 1.0 /HPF (0-13.0) 02/11/21 17:30 Urine Mucus Few /HPF 02/11/21 17:30 Coronavirus (PCR) Positive (Negative) A 02/11/21 Unknown Blood Type AB POSITIVE 02/10/21 20:44 Antibody Screen Negative 02/10/21 20:44 Garcia/IV: Voiding Method Incontinent Active Medications - Current Medications Current Medications: Generic Name Dose Route Start Last Admin Trade Name Freq PRN Reason Stop Dose Admin Acetaminophen 650 mg 02/10/21 23:59 Acetaminophen 325 Mg Tab PO Q4H PRN Pain MILD(1-3)/Fever >100.5/GIRALDO Albuterol 2.5 mg 02/10/21 23:59 Albuterol 2.5 Mg/3 Ml Nebu IH Q4HRT PRN Shortness Of Breath Dexamethasone 6 mg 02/12/21 10:00 02/13/21 09:19 Dexamethasone 4 Mg Tab PO 02/20/21 12:00 6 mg DAILY ERIN Administration Famotidine 20 mg 02/11/21 10:00 02/13/21 09:19 Famotidine 20 Mg Tab PO 20 mg BID ERIN Administration Fenofibrate 145 mg 02/11/21 10:00 02/13/21 09:19 Fenofibrate 145 Mg Tab PO 145 mg QDAY ERIN Administration Haloperidol Lactate 5 mg 02/12/21 10:14 02/12/21 15:49 Haloperidol Lactate 5 Mg/1 Ml Inj IM 5 mg Q6H PRN Administration Agitation Heparin Sodium (Porcine) 5,000 unit 02/11/21 06:00 02/13/21 05:51 Heparin 5,000 Unit/1 Ml Vial SUB-Q 5,000 unit Q8HR ERIN Administration Hydralazine HCl 10 mg 02/11/21 00:01 Hydralazine 20 Mg/1 Ml Inj IV Q6H PRN Blood Pressure Hydromorphone HCl 0.5 mg 02/10/21 23:59 Hydromorphone 1 Mg/1 Ml Inj IV Q3H PRN Pain , Severe (7-10) Ceftriaxone Sodium 2 gm in 100 mls @ 200 mls/hr 02/11/21 01:00 02/13/21 07:46 Rocephin/Ns 2 Gm/100 Ml IV 02/15/21 01:29 Infused Q24H ERIN Infusion Protocol Azithromycin 500 mg in 250 mls @ 250 mls/hr 02/11/21 01:00 02/13/21 07:45 Zithromax/Ns IV 02/15/21 01:59 Infused Q24H ERIN Infusion Protocol REMDESIVIR 100 mg/ Sodium 250 mls @ 500 mls/hr 02/12/21 21:00 02/13/21 07:47 Chloride IV 02/15/21 21:29 Infused Q24HR@2100 ERIN Infusion Levothyroxine Sodium 100 mcg 02/11/21 06:00 02/13/21 05:51 Levothyroxine 100 Mcg Tab PO 100 mcg DAILY@0600 ERIN Administration Metoprolol Tartrate 50 mg 02/11/21 10:00 02/13/21 09:19 Metoprolol Tartrate 50 Mg Tab PO 50 mg DAILY ERIN Administration Miscellaneous Medication 1 drop 02/11/21 10:00 Restasis 0.05% .ROUTE DAILY [facility] Ondansetron HCl 4 mg 02/10/21 23:59 Ondansetron 4 Mg/2 Ml Inj IV Q8H PRN Nausea And Vomiting Oxycodone/Acetaminophen 1 tab 02/10/21 23:59 02/13/21 09:19 Oxycodone /Acetaminophen 5-325mg Tab PO 1 tab Q6H PRN Administration Pain, Moderate (4-6) Sodium Chloride 10 ml 02/11/21 10:00 02/13/21 09:20 Sodium Chloride 0.9% 10 Ml Flush Syringe IV 10 ml BID ERIN Administration Sodium Chloride 10 ml 02/10/21 23:59 Sodium Chloride 0.9% 10 Ml Flush Syringe IV PRN PRN LINE FLUSH Sodium Chloride 50 ml 02/11/21 16:00 02/12/21 22:29 Sodium Chloride 0.9% 50 Ml Ivpb IV 02/15/21 21:01 50 ml Q24HR@2100 ERIN Administration
[2021-02-13] MEDS: REMDESIVIR 100 MG in SODIUM CHLORIDE 0.9% 250ML 250 ML IV SCH (21:39)
[2021-02-13] MEDS: SODIUM CHLORIDE 0.9% 50 ML IVPB IV SCH (21:39)
[2021-02-14] MEDS: cefTRIAXone/NS 2 GM/100 ML 2 GM/100 ML BAG IV SCH (00:56)
[2021-02-14] MEDS: AZITHROMYCIN/NS 500 MG/250 ML 500 MG/250 ML BAG IV SCH (00:56)
[2021-02-14] MEDS ORDERED: guaiFENesin 100 MG/5 ML ORAL LIQD PO PRN (04:08)
[2021-02-14 04:10] VITALS: BP 136/75
[2021-02-14 06:16] LABS: Alanine Aminotransferase 35 units/L (7-56); Albumin 3.6 g/dL (3.9-5); Blood Urea Nitrogen 19 mg/dL (7-17); Calcium 8.7 mg/dL (8.4-10.2); Hemolysis Index 9
[2021-02-14 06:36] LABS: BUN/Creatinine Ratio 32
[2021-02-14] MEDS: HEPARIN 5,000 UNIT/1 ML VIAL SUB-Q SCH (06:37)
[2021-02-14] MEDS: LEVOTHYROXINE 100 MCG TAB PO SCH (06:37)
--- NOTE | 2021-02-14 09:54 | Progress Note ---
Assessment and Plan Assessment and plan: --Hyponatremia ; Current Visit: Yes Status: Acute Improved, closely monitor electrolytes --Bilateral pneumonia Current Visit: Yes Status: Acute Continue empiric antibiotics , follow cultures Probably due to Covid pneumonia --Hypertension Current Visit: Yes Status: Acute Continue current antihypertensives As needed hydralazine -- Hypothyroidism Current Visit: Yes Status: Acute Stable. We will continue the home medication. Continue Synthroid --Hyperlipidemia Current Visit: Yes Status: Acute Low-cholesterol diet, lipid-lowering medication -- DVT prophylaxis Current Visit: Yes Status: Acute Heparin 5000 units subcu every 8 hours 02/12/21 Patient with Covid-19 pneumonia with acute resp failure. Has been restless, agitated. Started Haldol prn, medical soft wrist restraints. 02/13/21 Patient with Covid-19, agitation. Continue haldol prn 02/14/21 Patient with Covid-19 infection. BP elevated 181/102. Add Amlodipine. I spoke to her daughter on phone. Likely dc home tomorrow. History Interval history: Patient with Covid-19 No more Fever Cough Agitation Hospitalist Physical - Physical exam Narrative exam: Gen: Not in acute distress, lying in bed HEENT:Normocephalic,atraumatic Neck:supple, No JVD Lungs: bilateral rales, no wheeze Heart:S1 and S2 reg, no murmurs, rubs or gallop Abd:soft, non tender, non distended, normal bowel sounds Ext; No edema, no clubbing, no cyanosis Neuro:Awake,alert, moves all ext, - Constitutional Vitals: Temp Pulse Resp BP Pulse Ox 98.2 F 85 18 136/75 0 L 02/13/21 21:21 02/13/21 21:21 02/13/21 21:21 02/13/21 21:21 02/14/21 09:05 General appearance: Present: no acute distress, well-nourished HEART Score - HEART Score Troponin: Troponin T < 0.010 ng/mL (0.00-0.029) 02/10/21 20:44 Results - Labs CBC & Chem 7: 02/12/21 06:40 02/14/21 05:00 Labs: Laboratory Last Values WBC 2.9 K/mm3 (4.5-11.0) L 02/12/21 06:40 RBC 4.81 M/mm3 (3.65-5.03) 02/12/21 06:40 Hgb 15.0 gm/dl (10.1-14.3) H 02/12/21 06:40 Hct 46.0 % (30.3-42.9) H 02/12/21 06:40 MCV 96 fl (79-97) 02/12/21 06:40 MCH 31 pg (28-32) 02/12/21 06:40 MCHC 33 % (30-34) 02/12/21 06:40 RDW 13.0 % (13.2-15.2) L 02/12/21 06:40 Plt Count 262 K/mm3 (140-440) 02/12/21 06:40 [place] % (Auto) Consulting [employer] Analyst 02/12/21 06:40 Eos % (Auto) 0.0 % (0.0-4.3) 02/12/21 06:40 Baso % (Auto) Consulting [employer] Analyst 02/10/21 20:44 Clinch # (Auto) 0.5 K/mm3 (0.0-0.8) 02/12/21 06:40 Eos # (Auto) 0.0 K/mm3 (0.0-0.4) 02/12/21 06:40 Baso # (Auto) 0.0 K/mm3 (0.0-0.1) 02/12/21 06:40 Add Manual Diff Complete 02/12/21 06:40 Total Counted 100 02/12/21 06:40 Seg Neutrophils % 62.3 % (40.0-70.0) 02/12/21 06:40 Seg Neuts % (Manual) 60.0 % (40.0-70.0) 02/12/21 06:40 Band Neutrophils % 7.0 % 02/12/21 06:40 Lymphocytes % (Manual) 32.0 % (13.4-35.0) 02/12/21 06:40 Monocytes % (Manual) 11.0 % (0.0-7.3) H 02/10/21 20:44 Metamyelocytes % 1.0 % 02/12/21 06:40 Nucleated RBC % 35.0 % (0.0-0.9) H 02/12/21 06:40 Seg Neutrophils # 1.8 K/mm3 (1.8-7.7) 02/12/21 06:40 Seg Neutrophils # Man 1.7 K/mm3 (1.8-7.7) L 02/12/21 06:40 Band Neutrophils # 0.2 K/mm3 02/12/21 06:40 Lymphocytes # (Manual) 0.9 K/mm3 (1.2-5.4) L 02/12/21 06:40 Abs React Lymphs (Man) 0.0 K/mm3 02/12/21 06:40 Monocytes # (Manual) 0.0 K/mm3 (0.0-0.8) 02/12/21 06:40 Eosinophils # (Manual) 0.0 K/mm3 (0.0-0.4) 02/12/21 06:40 Basophils # (Manual) 0.0 K/mm3 (0.0-0.1) 02/12/21 06:40 Metamyelocytes # 0.0 K/mm3 02/12/21 06:40 Myelocytes # 0.0 K/mm3 02/12/21 06:40 Promyelocytes # 0.0 K/mm3 02/12/21 06:40 Blast Cells # 0.0 K/mm3 02/12/21 06:40 WBC Morphology Not Reportable 02/12/21 06:40 Hypersegmented Neuts Not Reportable 02/12/21 06:40 Hyposegmented Neuts Not Reportable 02/12/21 06:40 Hypogranular Neuts Not Reportable 02/12/21 06:40 Smudge Cells Not Reportable 02/12/21 06:40 Toxic Granulation Not Reportable 02/12/21 06:40 Toxic Vacuolation Not Reportable 02/12/21 06:40 Dohle Bodies Not Reportable 02/12/21 06:40 Pelger-Huet Anomaly Not Reportable 02/12/21 06:40 Ezekiel Rods Not Reportable 02/12/21 06:40 Platelet Estimate Consistent w auto 02/12/21 06:40 Clumped Platelets Not Reportable 02/12/21 06:40 Plt Clumps, EDTA Not Reportable 02/12/21 06:40 Large Platelets Not Reportable 02/12/21 06:40 Giant Platelets Not Reportable 02/12/21 06:40 Platelet Satelliting Not Reportable 02/12/21 06:40 Plt Morphology Comment Not Reportable 02/12/21 06:40 RBC Morphology Not Reportable 02/12/21 06:40 Dimorphic RBCs Not Reportable 02/12/21 06:40 Polychromasia Not Reportable 02/12/21 06:40 Hypochromasia Not Reportable 02/12/21 06:40 Poikilocytosis Not Reportable 02/12/21 06:40 Anisocytosis Not Reportable 02/12/21 06:40 Microcytosis Not Reportable 02/12/21 06:40 Macrocytosis Not Reportable 02/12/21 06:40 Spherocytes Not Reportable 02/12/21 06:40 Pappenheimer Bodies Not Reportable 02/12/21 06:40 Sickle Cells Not Reportable 02/12/21 06:40 Target Cells Not Reportable 02/12/21 06:40 Tear Drop Cells Not Reportable 02/12/21 06:40 Ovalocytes Not Reportable 02/12/21 06:40 Helmet Cells Not Reportable 02/12/21 06:40 [place] Bodies Not Reportable 02/12/21 06:40 [place] Rings Not Reportable 02/12/21 06:40 [place] Cells Not Reportable 02/12/21 06:40 Bite Cells Not Reportable 02/12/21 06:40 Crenated Cell Not Reportable 02/12/21 06:40 Elliptocytes Not Reportable 02/12/21 06:40 Acanthocytes (Spur) Not Reportable 02/12/21 06:40 Rouleaux Not Reportable 02/12/21 06:40 Hemoglobin C Crystals Not Reportable 02/12/21 06:40 Schistocytes Not Reportable 02/12/21 06:40 Malaria parasites Not Reportable 02/12/21 06:40 Fabian Bodies Not Reportable 02/12/21 06:40 Hem Pathologist Commnt No 02/12/21 06:40 APTT 32.5 Sec. (24.2-36.6) 02/10/21 20:44 D-Dimer 430.34 ng/mlDDU (0-234) H 02/12/21 06:40 Sodium 130 mmol/L (137-145) L 02/14/21 05:00 Potassium 4.2 mmol/L (3.6-5.0) 02/14/21 05:00 Chloride 97.3 mmol/L (98-107) L 02/14/21 05:00 Carbon Dioxide 21 mmol/L (22-30) L 02/14/21 05:00 Anion Gap 16 mmol/L 02/14/21 05:00 BUN 19 mg/dL (7-17) H 02/14/21 05:00 Creatinine 0.6 mg/dL (0.6-1.2) 02/14/21 05:00 Estimated GFR > 60 ml/min 02/14/21 05:00 BUN/Creatinine Ratio 32 % 02/14/21 05:00 Glucose 120 mg/dL (65-100) H 02/14/21 05:00 POC Glucose 145 mg/dL (70-105) H 02/12/21 12:16 Lactic Acid 0.90 mmol/L (0.7-2.0) 02/10/21 20:44 Calcium 8.7 mg/dL (8.4-10.2) 02/14/21 05:00 Ferritin 999.7 ng/mL (10.0-200.0) H 02/12/21 06:40 Total Bilirubin 0.40 mg/dL (0.1-1.2) 02/14/21 05:00 AST 39 units/L (5-40) 02/14/21 05:00 ALT 35 units/L (7-56) 02/14/21 05:00 Alkaline Phosphatase 55 units/L (35-129) 02/14/21 05:00 Total Creatine Kinase 271 units/L (30-135) H 02/10/21 20:44 Troponin T < 0.010 ng/mL (0.00-0.029) 02/10/21 20:44 C-Reactive Protein 0.30 mg/dL (0.00-1.30) 02/12/21 06:40 NT-Pro-B Natriuret Pep 470.8 pg/mL (0-900) 02/10/21 20:44 Total Protein 7.6 g/dL (6.3-8.2) 02/14/21 05:00 Albumin 3.6 g/dL (3.9-5) L 02/14/21 05:00 Albumin/Globulin Ratio 0.9 % 02/14/21 05:00 Procalcitonin < 0.05 ng/mL (<0.15) 02/12/21 06:40 Urine Color Yellow (Yellow) 02/11/21 17:30 Urine Turbidity Clear (Clear) 02/11/21 17:30 Urine pH 7.0 (5.0-7.0) 02/11/21 17:30 Ur Specific [place] 1.011 (1.003-1.030) 02/11/21 17:30 Urine Protein <15 mg/dl mg/dL (Negative) 02/11/21 17:30 Urine Glucose (UA) Neg mg/dL (Negative) 02/11/21 17:30 Urine Ketones Neg mg/dL (Negative) 02/11/21 17:30 Urine Blood Neg (Negative) 02/11/21 17:30 Urine Nitrite Neg (Negative) 02/11/21 17:30 Urine Bilirubin Neg (Negative) 02/11/21 17:30 Urine Urobilinogen < 2.0 mg/dL (<2.0) 02/11/21 17:30 Ur Leukocyte Esterase Neg (Negative) 02/11/21 17:30 Urine WBC (Auto) < 1.0 /HPF (0.0-6.0) 02/11/21 17:30 Urine RBC (Auto) 1.0 /HPF (0.0-6.0) 02/11/21 17:30 U Epithel Cells (Auto) < 1.0 /HPF (0-13.0) 02/11/21 17:30 Urine Mucus Few /HPF 02/11/21 17:30 Coronavirus (PCR) Positive (Negative) A 02/11/21 Unknown Blood Type AB POSITIVE 02/10/21 20:44 Antibody Screen Negative 02/10/21 20:44 Microbiology: Microbiology 02/11/21 17:30 Urine,Clean Catch Urine Culture - Preliminary NO GROWTH AFTER 24 HOURS Garcia/IV: Voiding Method Toilet Active Medications - Current Medications Current Medications: Generic Name Dose Route Start Last Admin Trade Name Freq PRN Reason Stop Dose Admin Acetaminophen 650 mg 02/10/21 23:59 Acetaminophen 325 Mg Tab PO Q4H PRN Pain MILD(1-3)/Fever >100.5/GIRALDO Albuterol 2.5 mg 02/10/21 23:59 Albuterol 2.5 Mg/3 Ml Nebu IH Q4HRT PRN Shortness Of Breath Amlodipine Besylate 5 mg 02/14/21 10:00 Amlodipine 5 Mg Tab PO QDAY EIRN Dexamethasone 6 mg 02/12/21 10:00 02/13/21 09:19 Dexamethasone 4 Mg Tab PO 02/20/21 12:00 6 mg DAILY ERIN Administration Famotidine 20 mg 02/11/21 10:00 02/13/21 21:40 Famotidine 20 Mg Tab PO 20 mg BID ERIN Administration Fenofibrate 145 mg 02/11/21 10:00 02/13/21 09:19 Fenofibrate 145 Mg Tab PO 145 mg QDAY ERIN Administration Guaifenesin 200 mg 02/14/21 04:08 02/14/21 04:14 Guaifenesin 100 Mg/5 Ml Oral Liqd PO 200 mg Q4H PRN Administration Cough Haloperidol Lactate 5 mg 02/12/21 10:14 02/12/21 15:49 Haloperidol Lactate 5 Mg/1 Ml Inj IM 5 mg Q6H PRN Administration Agitation Heparin Sodium (Porcine) 5,000 unit 02/11/21 06:00 02/14/21 06:37 Heparin 5,000 Unit/1 Ml Vial SUB-Q 5,000 unit Q8HR ERIN Administration Hydralazine HCl 10 mg 02/11/21 00:01 Hydralazine 20 Mg/1 Ml Inj IV Q6H PRN Blood Pressure Hydromorphone HCl 0.5 mg 02/10/21 23:59 Hydromorphone 1 Mg/1 Ml Inj IV Q3H PRN Pain , Severe (7-10) Ceftriaxone Sodium 2 gm in 100 mls @ 200 mls/hr 02/11/21 01:00 02/14/21 00:56 Rocephin/Ns 2 Gm/100 Ml IV 02/15/21 01:29 200 mls/hr Q24H ERIN Administration Protocol Azithromycin 500 mg in 250 mls @ 250 mls/hr 02/11/21 01:00 02/14/21 00:56 Zithromax/Ns IV 02/15/21 01:59 250 mls/hr Q24H ERIN Administration Protocol REMDESIVIR 100 mg/ Sodium 250 mls @ 500 mls/hr 02/12/21 21:00 02/13/21 21:39 Chloride IV 02/15/21 21:29 500 mls/hr Q24HR@2100 ERIN Administration Levothyroxine Sodium 100 mcg 02/11/21 06:00 02/14/21 06:37 Levothyroxine 100 Mcg Tab PO 100 mcg DAILY@0600 ERIN Administration Metoprolol Tartrate 50 mg 02/11/21 10:00 02/13/21 09:19 Metoprolol Tartrate 50 Mg Tab PO 50 mg DAILY ERIN Administration Ondansetron HCl 4 mg 02/10/21 23:59 Ondansetron 4 Mg/2 Ml Inj IV Q8H PRN Nausea And Vomiting Oxycodone/Acetaminophen 1 tab 02/10/21 23:59 02/13/21 09:19 Oxycodone /Acetaminophen 5-325mg Tab PO 1 tab Q6H PRN Administration Pain, Moderate (4-6) Sodium Chloride 10 ml 02/11/21 10:00 02/13/21 21:40 Sodium Chloride 0.9% 10 Ml Flush Syringe IV 10 ml BID ERIN Administration Sodium Chloride 10 ml 02/10/21 23:59 Sodium Chloride 0.9% 10 Ml Flush Syringe IV PRN PRN LINE FLUSH Sodium Chloride 50 ml 02/11/21 16:00 02/13/21 21:39 Sodium Chloride 0.9% 50 Ml Ivpb IV 02/15/21 21:01 50 ml Q24HR@2100 ERIN Administration
[2021-02-14] MEDS ORDERED: amLODIPine 5 MG TAB PO SCH (10:00)
--- NOTE | 2021-02-14 11:23 | Discharge Summary ---
Providers - Providers Date of Admission: 02/10/21 23:01 Date of discharge: 02/14/21 Attending physician: BRODIE WYNN 02/10/21 23:59 Consult to Physician [CONS] Routine Comment: Consulting Provider: LARON BAGLEY Physician Instructions: Reason For Exam: covid Primary care physician: BUNDLE WRAPPER Hospitalization Condition: Fair Hospital course: Patient is 85 yo with history of hypertension, hypothyroidism was brought to the emergency room via EMS with her daughter for cough and fever for the last 1 day. The patient does not speak [place] so her daughter interprets for her. The daughter stated her mother stays at an elderly home and that her was admitted to the hospital yesterday for Covid. In the emergency room patient chest x-ray showed bilateral pulmonary opacities. suggestive of Covid-19 pneumonia. She was admitted and evaluated by ID Physician. Patient was treated with Remdesivir and Dexamethasone. She improved. However she was agitated multiple times given haldol. On 02/14/21, patient stated she wants to go home. I spoke with daughter on phone she also wants patient discharged so she was discharged home on 02/14/21. -Covid-19 Pneumonia treated with Remdesivir and Dexamethasone --Hyponatremia ; Current Visit: Yes Status: Acute Improved, closely monitor electrolytes --Bilateral pneumonia Current Visit: Yes Status: Acute Continue empiric antibiotics , follow cultures Probably due to Covid pneumonia --Hypertension Current Visit: Yes Status: Acute Continue current antihypertensives As needed hydralazine -- Hypothyroidism Current Visit: Yes Status: Acute Stable. We will continue the home medication. Continue Synthroid --Hyperlipidemia Current Visit: Yes Status: Acute Low-cholesterol diet, lipid-lowering medication -- DVT prophylaxis Current Visit: Yes Status: Acute Heparin 5000 units subcu every 8 hours 02/12/21 Patient with Covid-19 pneumonia with acute resp failure. Has been restless, agitated. Started Haldol prn, medical soft wrist restraints. 02/13/21 Patient with Covid-19, agitation. Continue haldol prn 02/14/21 Patient with Covid-19 infection. BP elevated 181/102. Add Amlodipine. I spoke to her daughter on phone. Likely dc home tomorrow. 02/14/21 Patient wants to go home, therefore discharged home. Disposition: HOME / SELF CARE / HOMELESS Final Discharge Diagnosis (Prints w/discharge instructions): 1.Covid-19 pneumon ia Time spent for discharge: 38 mins - Discharge Diagnoses (1) COVID-19 Status: Acute (2) Hyperlipidemia Status: Acute (3) Hypertension Status: Acute (4) Hypothyroidism Status: Acute Core Measure Documentation - Palliative Care Palliative Care/ Comfort Measures: Not Applicable - Core Measures Any of the following diagnoses?: none Exam - Constitutional Vitals: Temp Pulse Resp BP Pulse Ox 98.2 F 85 18 136/75 0 L 02/13/21 21:21 02/13/21 21:21 02/13/21 21:21 02/13/21 21:21 02/14/21 09:05 Plan Activity: advance as tolerated Diet: low fat, low cholesterol, low salt Plan of Treatment: 1.Follow up with PCP in 1 week. 2.Quarantine for 10 days after Covid-19 diagnosis, to end on 02/21/21 Follow up with: PRIMARY CARE, [Primary Care Provider] - 3-5 Days Prescriptions: amLODIPine 5 mg PO QDAY #30 tablet Dexamethasone [Decadron] 6 mg PO DAILY 8 Days tablet Famotidine [Pepcid] 20 mg PO BID #60 tablet
--- NOTE | 2021-02-14 11:31 | Event Note ---
Date: 02/14/21 Patient wants to go home. I spoke with daughter and she wants patient to come home.
== END 2021-02-14 13:40 | disposition home or self-care (01) | DRG 177 ==
LOC: ED 18:55 → 3A 23:01
PROVIDERS: ADMIT Hospitalist; ATTEND Internal Medicine
PROC: XW033E5 Introduction of Remdesivir Anti-infective into Peripheral Vein, Percutaneous Approach, New Technology Group 5 (ICD-10-PCS; principal; 2021-02-11)
DX: U07.1 COVID-19 (principal); J12.82 Pneumonia due to coronavirus disease 2019; J96.01 Acute respiratory failure with hypoxia; E87.1 Hypo-osmolality and hyponatremia; I10 Essential (primary) hypertension; E03.9 Hypothyroidism, unspecified; E78.00 Pure hypercholesterolemia, unspecified; Z86.79 Personal history of other diseases of the circulatory system
CPT/HCPCS: 36415; 71045; 80048; 80053; 81001; 82140; 82550; 82728; 82962; 83880; 84145; 84484; 85007; 85025; 85379; 85730; 86140; 86850; 86900; 86901; 87086; 94640; 94760; G0378; J0456; J0692; J0696; J1100; J1630; J1644; J7050; J8540; U0003